=== PATIENT | female | born 1975 | race Caucasian/White ===

== ENCOUNTER 2020-01-08 15:25 | Outpatient (CLI) | payer BC, SELFPAY ==
--- NOTE | ~2020-01-08 | MM_ITS ---
EXAMINATION: MM screening saad BI w iban HISTORY: Screening mammogram TECHNIQUE: Craniocaudal and mediolateral oblique 3-D tomosynthesis images were obtained and synthetic 2-D images were generated. CAD analysis was submitted and interpreted. COMPARISON: 05/07/2018, 03/28/2017 bilateral digital screening mammogram examinations BREAST PARENCHYMAL COMPOSITION: The breasts are extremely dense, which lowers the sensitivity of mamm ography. FINDINGS: There is no evidence of suspicious mass, calcification, or architectural distortion to sugg est malignancy in either breast. There has been no suspicious interval change. IMPRESSION: 1. No mammographic evidence of malignancy. 2. Recommend routine screening mammography in one year. BI-RADS Category 1: Negative Reviewed, dictated and finalized at location A. H CLAIM EXAMINER
== END 2020-01-08 15:26 | disposition home or self-care (01) ==
PROVIDERS: PCP Family Medicine Adolescent Medicine; Visit Provider Obstetrics & Gynecology
DX: Z12.31 Encounter for screening mammogram for malignant neoplasm of breast (principal)
CPT/HCPCS: 77063; 77067

== ENCOUNTER 2020-01-23 11:32 | Outpatient (NON) | payer BC, SELFPAY ==
[2020-01-24 00:27] LABS: SARS-CoV-2 RNA PCR Positive
== END 2020-01-23 11:33 ==
LOC: ANHCOVIDDT 11:35
PROVIDERS: Visit Provider Family Medicine Adolescent Medicine
DX: U07.1 COVID-19 (principal)
CPT/HCPCS: 87635; C9803; U0003

== ENCOUNTER → 2020-06-27 06:39 | Outpatient (CLI) | payer BC, SELFPAY ==
[2020-06-27 23:32] LABS: SARS-CoV-2 RNA PCR Negative
== END ==
PROVIDERS: PCP Family Medicine Adolescent Medicine; Visit Provider Family Medicine Adolescent Medicine
DX: R05 Cough (principal); R51.9 Headache, unspecified; Z20.822 Contact with and (suspected) exposure to COVID-19
CPT/HCPCS: C9803; U0003; U0005

== ENCOUNTER 2020-11-10 13:00 | Emergency (ER) | payer OTHER, SELFPAY ==
[2020-11-10 13:10] VITALS: BP 114/84; PULSE 115; RESP 16; TEMP 36.6; O2SAT 100
[2020-11-10] MEDS: diphenhydrAMINE HCl INJ 50 MG/ML VIAL IM (14:23)
[2020-11-10] MEDS: KETOROLAC (*BKC) 60 MG/2 ML VIAL IM (14:23)
[2020-11-10] MEDS: ONDANSETRON HCL ODT 4 MG TABLET 8 MG SUBLINGUAL (14:24)
--- NOTE | 2020-11-10 19:32 | ED.HA ---
HPI - Headache General Chief Complaint: Headache Stated Complaint: Migraine Time Seen by Provider: 11/10/20 14:00 Source: patient and RN notes reviewed Mode of arrival: ambulatory Limitations: no limitations History of Present Illness HPI Narrative: Patient presents today complaining of a migraine headache x3 days that is located on the right side of her head with associated symptoms to include photophobia, phonophobia, nausea. Reports this is similar to her previous migraines. Denies vision changes, vomiting. She currently rates her pain 15/10 and has been taking Tylenol, ibuprofen for pain without relief. She takes Topamax on a daily basis. States she did call her PCP who called her in some tramadol. States that when she has a migraine, her PCP calls her in narcotics instead of migraine medications. States, he thinks they help, but they don't, and I don't even pick them up. Denies that this is the worst headache of her life. MD elicited complaint: migraine Related Data Home Medications Medication Instructions Recorded Confirmed alprazolam 0.5 mg tablet 0.5 mg PO DAILY 06/05/19 11/10/20 bupropion HCl 150 mg tablet,12 hr 150 mg PO DAILY 06/05/19 11/10/20 sustained-release gabapentin 300 mg capsule 300 mg PO DAILY 06/05/19 11/10/20 norethindrone acetate 1.5 1 tablet PO DAILY 06/05/19 11/10/20 mg-ethinyl estradiol 30 mcg tablet sertraline 50 mg tablet 50 mg PO DAILY 06/05/19 11/10/20 thyroid (pork) 120 mg tablet 120 mg PO DAILY 06/05/19 11/10/20 topiramate 50 mg tablet 50 mg PO BID 06/05/19 11/10/20 valacyclovir 500 mg tablet 500 mg PO DAILY 06/05/19 11/10/20 Allergies Allergy/AdvReac Type Severity Reaction Status Date / Time No Known Allergies Allergy Verified 11/10/20 13:41 Review of Systems Review of Systems: CONSTITUTIONAL: Denies body aches, fever, chills, or sweats. EYES: Denies visual changes, redness, or discharge.+ Photophobia ENT: Denies rhinorrhea, congestion, sore throat, or otalgia.+ Phonophobia CARDIOVASCULAR: Denies chest pain, palpitations, or edema. RESPIRATORY: Denies cough or dyspnea. GASTROINTESTINAL: Denies abdominal pain, vomiting, or diarrhea.+ Nausea GENITOURINARY: Denies dysuria or hematuria. SKIN: Denies rash, itching, or wounds. MUSCULOSKELETAL: Denies back pain, joint pain, or myalgia. NEUROLOGIC: Denies numbness, or weakness.+ Migraine. Patient has tingling in her right arm at baseline. PSYCH: Denies depression or anxiety. [facility] Past Medical History Medical History (Updated 11/10/20 @ 19:35 by Teagan Murphy, CLERK SECRETARY, ) Anxiety Depression Headache Migraine Thyroid disease Surgical History Surgical History History of thyroidectomy 2014 History of tubal ligation 2012 Social History Social History Smoking status: Never smoker Alcohol intake: never Substance use: never Comments At time of signature, I have reviewed and agree with nursing past medical, surgical, social and family history unless otherwise noted. Please see nursing chart for further information. There is no relevant family history pertinent to the presenting complaint Exam Narrative: GENERAL: Well-appearing, well-nourished, and in no mild to moderate pain distress. Sitting in a darkened room. HEAD: Normocephalic, atraumatic. EYES: EOMI. PERRL. No redness or drainage. Conjunctivae normal. ENT: Mucous membranes pink and moist. NECK: Normal AROM. Supple. No lymphadenopathy. CHEST: No respiratory distress. Clear to auscultation. HEART: Regular rate and rhythm. No murmur appreciated. Normal peripheral pulses. EXTREMITIES: Normal range of motion. No edema. SKIN: Warm, dry, no rash. Capillary refill normal. Normal skin turgor. NEURO: No focal deficits. Alert and oriented x3. Gait steady. PSYCH: Normal affect. No signs of depression or anxiety. Course Course Emergen
== END 2020-11-10 15:15 | disposition home or self-care (01) ==
PROVIDERS: Emergency Provider Nurse Practitioner; PCP Family Medicine Adolescent Medicine
DX: G43.911 Migraine, unspecified, intractable, with status migrainosus (principal); F41.9 Anxiety disorder, unspecified; F32.9 Major depressive disorder, single episode, unspecified; E07.9 Disorder of thyroid, unspecified
CPT/HCPCS: 96372; 99214; A9270; G0463; J1200; J1885

== ENCOUNTER → 2020-11-30 10:32 | Outpatient (CLI) | payer OTHER, SELFPAY ==
--- NOTE | ~2020-11-30 | US_ITS ---
EXAMINATION: US transvaginal DATE: 11/30/2020 11:04 INDICATION: Pelvic pain Comparison:12/19/2013 TECHNIQUE: Multiple endovaginal sonographic images of the pelvis performed. FINDINGS: The uterus measures 7.6 x 3.5 x 4.3 cm. The endometrial complex measures 3 mm. The right ovary measures 1.6 x 1.9 x 1.5 cm and the left ovary measures 2.3 x 2.1 x 1.5 cm. There ar e small follicles in each ovary. Normal doppler signal in both ovaries. There is no free fluid in the pelvis. There are no abnormal masses seen on either side. IMPRESSION: 1. Unremarkable pelvic ultrasound. Reviewed, dictated and finalized at location B.
== END ==
PROVIDERS: Visit Provider Obstetrics & Gynecology
DX: R10.2 Pelvic and perineal pain (principal)
CPT/HCPCS: 76830

== ENCOUNTER → 2020-12-25 03:33 | Outpatient (CLI) | payer OTHER, SELFPAY ==
[2020-12-25 18:10] LABS: SARS-CoV-2 RNA PCR Negative
== END ==
PROVIDERS: Visit Provider Obstetrics & Gynecology
DX: Z01.812 Encounter for preprocedural laboratory examination (principal); Z20.822 Contact with and (suspected) exposure to COVID-19
CPT/HCPCS: C9803; U0003; U0005

== ENCOUNTER 2020-12-25 08:48 | Outpatient (CLI) | payer OTHER, SELFPAY | END 2020-12-25 08:49 | disposition home or self-care (01) | LOC: ANHSURGERY 08:53 | PROVIDERS: Visit Provider Obstetrics & Gynecology | DX: Z01.812 Encounter for preprocedural laboratory examination (principal); N80.9 Endometriosis, unspecified | CPT/HCPCS: 36415; 86850; 86900; 86901 ==

== ENCOUNTER 2020-12-28 02:06 | Day surgery (SDC) | payer OTHER, SELFPAY ==
[2020-12-23 11:52] VITALS: BMI 23.9
--- NOTE | 2020-12-23 12:07 | PC.NURSE ---
Report to the Outpatient Waiting Room, entrance under the green pavilion located off [facility], at time 10:00 on date 12/28/20. OR Time: 12:00. - You and your visitor will be asked a series of questions to screen for COVID 19 for your protection. - A mask is required within the hospital. - Only one visitor is allowed at this time. Patient visitors will be guided where to wait when not with patient. Preoperative COVID Testing Requirements: No COVID Test needed if: (proof is required; if not received patient will have Rapid Test prior to entry) - Patient has received COVID Vaccine at least 14 days prior to procedure date or - Patient has positive COVID test result within last 90 days of surgery date. COVID Test needed if above criteria is not met If not COVID vaccinated a COVID test must be conducted within 72 hours of surgery and patient is asked to isolate self from time of testing until procedure. You will go to the [facility] for your COVID testing. The [facility] is located at the corner of [address] [facility]. COVID TEST 12/25 AT 8:35 You will only be called if COVID results are positive and your surgeon may reschedule your elective surgery date. Patients may have clear liquids (water, carbonated beverages, clear teas, apple juice) until 3 hours prior to surgery with a maximum of 20 ounces. - No food from midnight until time of surgery - Infants may have breast milk until 4 hours before surgery, infant formula 6 hours prior to surgery. - Children will be allowed to drink immediately following surgery. If applicable, please bring a bottle or sippy cup to assist with drinking. Juice, water, soda, and popsicles are readily available. For infants on formula, please bring formula the day of surgery. Pacifiers are allowed. Take the following medications with a SIP of water the morning of surgery: ALPAZOLAM (IF NEEDED), BUPROPION, SERTRALINE, THYROID, TOPIRAMATE, VALACYCLOVIR Medications to discontinue per physician: VITAMINS/SUPPLEMENTS Date to take last dose: Monday12/24/20 Please no make-up, nail slovak, hairspray, perfume, deodorant, or body powder the day of surgery. No jewelry (including any body piercings) or valuables the day of surgery, leave them at home. Please take a shower or bath the night before, or the morning of, surgery with an antibacterial soap. Wear comfortable, loose fitting clothing. Children are encouraged to wear pajamas. - Jewelry must be removed prior to entering the operating room. Rings and piercings that are not removed may be cut off. - The hospital will not accept responsibility for valuables. - Please leave all valuables, including medications, at home the day of surgery. If you are going home after surgery, a licensed pick up driver must drive you home. - NO public transportation without another adult. - We recommend that an adult stay with you for 24 hours following discharge. - We also recommend that you do not drive, make important decision, drink alcoholic beverages, or take any drugs that were not prescribed by your health care provider for at least 24 hours after your discharge time. For Pediatric surgeries, we recommend two adults accompany the child home (only one inside the building at this time). Follow any additional instructions given to you from your surgeon. Telephone instructions given to SHADY RENE and asked if any additional questions and then verbalized understanding. Patient advised to call surgeon office or pre surgery nurse liaison [phone] if any additional questions.
[2020-12-28] VITALS (11 sets, daily range): BP systolic 92–126; BP diastolic 68–95; PULSE 74–100; RESP 12–20; TEMP 36.3–36.8; O2SAT 95–100; BMI 24.5
[2020-12-28] MEDS: LACTATED RINGERS 1,000 ML 30 ML IV CONT ×2 (10:48→14:10)
[2020-12-28] MEDS: KETOROLAC 15 MG/ML VIAL (*BKC) IV PUSH (10:48)
[2020-12-28] MEDS: ACETAMINOPHEN 500 MG TABLET 1000 MG PO (10:48)
--- NOTE | 2020-12-28 10:52 | P.PNAN_ITS ---
Anes - Initial Pre Proc Eval Procedure: Operation Date: 12/28/20 12:00 Proposed Procedures p Laparoscopic Assisted Vaginal Hysterectomy - Jose Segovia MD Date/Time: 12/28/20 10:52 Surgeon: Jose Segovia MD Pre Op Diagnosis: endometriosis Patient Data Age: 45 Gender: F Height: 1.7 m Weight: 71 kg Last Vital Signs Temp 36.3 C L 12/28/20 10:26 Pulse 95 12/28/20 10:26 Resp 18 12/28/20 10:26 BP 117/95 H 12/28/20 10:26 Pulse Ox 100 12/28/20 10:26 Allergies Allergy/AdvReac Type Severity Reaction Status Date / Time No Known Allergies Allergy Verified 12/28/20 10:18 Home Medications Medication Instructions Recorded Confirmed Type alprazolam 0.5 mg tablet 0.5 mg PO DAILY PRN 06/05/19 12/28/20 History bupropion HCl 150 mg tablet,12 hr 150 mg PO BID 06/05/19 12/28/20 History sustained-release sertraline 50 mg tablet 50 mg PO DAILY 06/05/19 12/28/20 History thyroid (pork) 120 mg tablet 120 mg PO DAILY 06/05/19 12/28/20 History topiramate 50 mg tablet 50 mg PO BID 06/05/19 12/28/20 History valacyclovir 500 mg tablet 500 mg PO DAILY 06/05/19 12/28/20 History ondansetron 8 mg PO Q4-6H PRN #20 tablet 11/10/20 12/23/20 Rx cholecalciferol (vitamin D3) 50 mcg PO DAILY 12/23/20 12/28/20 History [Vitamin D3] Patient hx anesthesia problems: none Family hx anesthesia problems: none Results Review: All pre-operative results and documents have been reviewed as part of the pre-operative evaluation. [facility] Past Medical History Medical History Anxiety Depression Headache Migraine Thyroid disease Surgical History Surgical History History of thyroidectomy 2014 History of tubal ligation 2012 Social History Social History Smoking status: Never smoker Alcohol intake: current Alcohol use details: SOCIAL Substance use: never Substance use type: does not use Living arrangements: with family Spiritual care concerns: No Anes - Eval Final PreProcedure Day of Procedure 12/28/20 10:52 Patient weight: normal Heart: regular rate and rhythm Airway: Mallampati scale class 1 Neurological: alert and oriented ASA classification: II Emergent: no Anesthesia type and monitoring: general GIVS and standard monitoring Results Review: All pre-operative results and documents have been reviewed as part of the pre-operative evaluation. Informed Consent: The patient's anesthetic plan and its attendant risks and benefits were discussed with the patient/family/POA. Questions were solicited and answers provided to the satisfaction of the patient/family/POA.
[2020-12-28] MEDS: SCOPOLAMINE 1.5 MG PATCH TRANSDERM (10:53)
--- NOTE | 2020-12-28 11:37 | PM.IMHP ---
H&P: HPI History of Present Illness Date/Time: 12/28/20 11:37 45 y/0 A1 presented the office with a history of endometriosis. Patient reports periods are very painful and intercouse also. She tried hormonal therapy and now no relief. Chief Complaint: painful cycles Review of Systems Constitutional: Constitutional: Reports fatigue Gastrointestinal: Gastrointestinal: Reports abdominal pain, Reports change in stool character, Reports diarrhea, Reports nausea and Reports vomiting Musculoskeletal: Musculoskeletal: Reports back pain PMFSH Past Medical History Medical History (Updated 12/29/20 @ 07:44 by Reyna Batitsa MD) Anxiety Depression Dysmenorrhea Endometriosis Headache Migraine Thyroid disease Surgical History Surgical History History of thyroidectomy 2014 History of tubal ligation 2012 Social History Social History Smoking status: Never smoker Alcohol intake: current Alcohol use details: SOCIAL Substance use: never Substance use type: does not use Living arrangements: with family Spiritual care concerns: No Meds Home Medications and Allergies Home Medications Medication Instructions Recorded Confirmed Type alprazolam 0.5 mg tablet 0.5 mg PO DAILY PRN 06/05/19 12/28/20 History bupropion HCl 150 mg tablet,12 hr 150 mg PO BID 06/05/19 12/28/20 History sustained-release sertraline 50 mg tablet 50 mg PO DAILY 06/05/19 12/28/20 History thyroid (pork) 120 mg tablet 120 mg PO DAILY 06/05/19 12/28/20 History topiramate 50 mg tablet 50 mg PO BID 06/05/19 12/28/20 History valacyclovir 500 mg tablet 500 mg PO DAILY 06/05/19 12/28/20 History ondansetron 8 mg PO Q4-6H PRN #20 tablet 11/10/20 12/23/20 Rx cholecalciferol (vitamin D3) 50 mcg PO DAILY 12/23/20 12/28/20 History [Vitamin D3] hydrocodone-acetaminophen 1 tablet PO Q3H PRN #20 tablet 12/29/20 Rx ondansetron 4 mg PO Q6H PRN #20 tablet 12/29/20 Rx Allergies Allergy/AdvReac Type Severity Reaction Status Date / Time No Known Allergies Allergy Verified 12/28/20 10:18 Vital Signs Vital Signs - 24 hr 12/28/20 10:26 Temperature 36.3 C L Pulse Rate 95 Respiratory Rate 18 Blood Pressure 117/95 H Pulse Oximetry 100 Exam Const: General: well developed Resp: Auscultation: clear to auscultation bilaterally Cardio: Rate: regular rate Rhythm: regular rhythm GI: Inspection: normal to inspection Auscultation: normal bowel sounds : Speculum Exam - Vagina: normal appearance of the vagina Speculum Exam - Cervix: normal appearance of the cervix Bimanual exam- vagina & uterus: normal bimanual exam Bimanual Exam- Adnexa, other: normal adnexae Assessment and Plan Assessment and plan (1) Dysmenorrhea: Code(s): N94.6 - Dysmenorrhea, unspecified Status: Acute Assessment and Plan: scheduled for a LAVH with possible bilateral salpingoopherectomy. Risk and benefits of procedure reviewed in detail with patient including bleeding, infection, trauma, complications of anesthesia, and continued pelvic pain. Patient verbally agrees to proceed. (2) Endometriosis: Code(s): N80.9 - Endometriosis, unspecified Status: Acute
--- NOTE | 2020-12-28 11:53 | WPDHPUPDATE1 ---
History and Physical Update Update Date/Time: 12/28/20 11:53 History and Physical has been reviewed, including an updated exam of the patient. There are NO changes in the patient's condition. Risks, benefits, and alternatives have been discussed and questions answered. Patient agrees to proceed with procedure.
--- NOTE | 2020-12-28 11:56 | SUR.PREOP ---
DR SIMPSON HERE, ASKED TO ADD POSSIBLE BSO TO CONSENT.
[2020-12-28] MEDS: ceFAZolin 2 GM/D5W 50 ML 2 GM/50 ML BAG IVPB (12:00)
[2020-12-28] MEDS: fentaNYL CITRATE INJ (*CRX) 100 MCG/2 ML VIAL 25 MCG IV PUSH ×8 (14:30→15:22)
--- NOTE | 2020-12-28 15:35 | PC.NURSE ---
This patient, Justin Ann, was received from PACU on 12/28/20 at 1535. Patient/family oriented to unit policies and routines
[2020-12-28] MEDS: KETOROLAC 30 MG/ML VIAL (*BKC) IV PUSH ×2 (16:15→23:03)
[2020-12-28] MEDS: MORPHINE SULFATE (*CRX) 4 MG/ML INJ IV PUSH ×2 (16:16→19:52)
[2020-12-28] MEDS: SIMETHICONE 80 MG TAB.CHEW PO (16:16)
[2020-12-28] MEDS: DEXTROSE 5%/0.45% SOD CHL 1,000 ML 125 ML IV CONT (16:17)
[2020-12-28] MEDS: ONDANSETRON INJ 4 MG/2 ML VIAL IV PUSH (20:48)
[2020-12-28] MEDS: TOPIRAMATE 25 MG TABLET 50 MG PO (20:51)
[2020-12-28] MEDS: SENNA/DOCUSATE SODIUM TABLET 2 TAB PO (20:51)
[2020-12-28] MEDS: buPROPion HCL SR (12 HR) 150 MG TAB PO (20:52)
[2020-12-29 03:40] VITALS: BP 119/89; PULSE 97; RESP 16; TEMP 37.1; O2SAT 100
[2020-12-29] MEDS: HYDROcodone/acetaminophen (*CRX) 5-325 MG TABLET 1 TAB PO ×2 (03:46→07:52)
[2020-12-29 04:52] LABS: Basophils Percent Auto 0.3 % (0.2-1.2); Hematocrit 32.7 % (37.0-47.0); Hemoglobin 11.3 g/dL (12.0-15.0); Immature Granulocyte Absolute 0.04 K/mm3 (0.00-0.031); Immature Granulocyte Percent A 0.3 % (0-0.5); Lymphocytes Absolute Auto 0.71 K/mm3 (0.9-3.2); Lymphocytes Percent Auto 6.1 % (18.3-44.2); Mean Corpuscular HGB Conc 34.6 g/dl (32-36); Mean Corpuscular Volume 89.8 fl (80-100); Mean Platelet Volume 10.1 fl (7.4-10.4); Monocytes Absolute Auto 0.6 K/mm3 (0.1-0.6); Monocytes Percent Auto 4.8 % (2.6-8.5); Neutrophils Absolute Auto 10.4 K/mm3 (1.3-6.7); Neutrophils Percent Auto 88.5 % (45.5-73.1); Platelet Count Result 279 k/mm3 (150-375); Red Blood Count 3.64 M/mm3 (4.2-5.4); Red Cell Distribution Width 11.3 % (11.5-14.5); White Blood Count 11.7 K/mm3 (4.5-10.0)
[2020-12-29 05:36] LABS: Anion Gap 4 mmol/L (8-16); Blood Urea Nitrogen 11 mg/dL (7-17); Calcium 8.4 mg/dL (8.4-10.2); Carbon Dioxide 23 mmol/L (22-30); Chloride 107 mmol/L (98-107); Estimated CRCL calculation 76 ml/min; Estimated Glomerular Filt Rate > 60; Glucose 131 mg/dL (65-110); Potassium 3.7 mmol/L (3.4-5.0); Sodium 134 mmol/L (137-145)
--- NOTE | 2020-12-29 07:42 | PM.GYNPNOP ---
TETRYL SCREEN OPERATOR - A/P Postoperative Procedures: Procedures Operation Date: 12/28/20 12:00 Actual Procedure Side Surgeon p Laparoscopic Assisted Vaginal Hysterectomy, Bilateral Salpingectomy Bilateral Jose Segovia MD Postoperative day: 1 Postoperative status: doing well Postoperative plan: routine post-op care and discharge Time Spent With Patient Time: Total time spent is greater than 50% in coordination of care (as documented) at patient's floor/unit and/or counseling patient: Time with patient: less than 15 minutes TETRYL SCREEN OPERATOR- PN:Subj Post-Op Subjective Date/time seen: 12/29/20 07:42 Subjective: patient has no complaints, pain is well controlled and patient is tolerating oral intake Exam Narrative: inc c/d/i abd-soft, nt,nd TETRYL SCREEN OPERATOR - PN: Obj Data Vital Signs Vital Signs: Vital Signs - 24 hr 12/28/20 10:26 12/28/20 14:10 12/28/20 14:15 Temperature 97.3 F L 97.6 F Pulse Rate 95 100 86 Respiratory Rate 18 16 20 Blood Pressure 117/95 H 120/80 116/75 Pulse Oximetry 100 100 100 12/28/20 14:30 12/28/20 14:45 12/28/20 15:00 Temperature Pulse Rate 93 79 89 Respiratory Rate 16 12 19 Blood Pressure 113/76 102/73 99/77 L Pulse Oximetry 100 96 98 12/28/20 15:15 12/28/20 15:26 12/28/20 16:00 Temperature 97.8 F Pulse Rate 80 75 74 Respiratory Rate 12 12 18 Blood Pressure 92/75 L 93/80 L 99/70 L Pulse Oximetry 97 95 12/28/20 19:50 12/28/20 22:50 12/29/20 03:40 Temperature 97.3 F L 98.2 F 98.8 F Pulse Rate 100 98 97 Respiratory Rate 16 16 16 Blood Pressure 113/68 126/83 119/89 Pulse Oximetry 98 98 100 Intake/Output Intake/Output: Intake & Output 12/26/20 12/27/20 12/28/20 12/29/20 23:59 23:59 23:59 23:59 Intake Total 1050 100 Output Total 875 75 Balance 175 25 Meds/Results Medications: Active Medications Generic Name Dose Route Start Last Admin Trade Name Freq PRN Reason Stop Dose Admin Hydrocodone Bitart/Acetaminophen 1 tab 12/28/20 14:21 12/29/20 03:46 Hydrocodone/Acetaminophen (*Crx) 5-325 Mg Tablet PO 1 tab Q3H PRN Administration Pain Rated 5 or Less Hydrocodone Bitart/Acetaminophen 1 tab 12/28/20 14:21 Hydrocodone/Acetaminophen (*Crx) 10-325 Mg Tablet PO Q3H PRN Pain Rated 6 or Greater Bupropion HCl 150 mg 12/28/20 21:00 12/28/20 20:52 Bupropion Hcl Sr (12 Hr) 150 Mg Tab PO 150 mg Q12HR TANNER Administration Estrogens Conjugated 1 applic 12/28/20 13:50 Estrogens, Conjugated Vaginal Cream 30 Gm VAGINAL ONCE TANNER Dextrose/Sodium Chloride 1,000 mls @ 125 mls/hr 12/28/20 14:25 12/28/20 16:17 Dextrose 5% Sodium Chloride 0.45% IV CONT 125 mls/hr .Q8H TANNER Administration Ibuprofen 600 mg 12/28/20 14:21 Ibuprofen 600 Mg Tablet PO Q6H PRN Cramping Ketorolac Tromethamine 30 mg 12/28/20 14:21 12/28/20 23:03 Ketorolac 30 Mg/Ml Vial (*Bkc) IV PUSH 01/02/21 14:20 30 mg Q6H PRN Administration Pain Rated 4-6 Morphine Sulfate 4 mg 12/28/20 14:21 12/28/20 19:52 Morphine Sulfate (*Crx) 4 Mg/Ml Inj IV PUSH 4 mg Q4H PRN Administration Severe breakthrough pain Naloxone HCl 0.1 mg 12/28/20 14:21 Naloxone Hcl 0.4 Mg/Ml Vial IV PUSH Q2M PRN Respiratory rate less than 10 Ondansetron HCl 4 mg 12/28/20 14:21 12/28/20 20:48 Ondansetron Inj 4 Mg/2 Ml Vial IV PUSH 4 mg Q6H PRN Administration Nausea And Vomiting Senna/Docusate Sodium 2 tab 12/28/20 21:00 12/28/20 20:51 Senna/Docusate Sodium Tablet PO 2 tab HS TANNER Administration Sertraline HCl 50 mg 12/29/20 09:00 Sertraline Hcl 50 Mg Tablet PO DAILY TANNER Simethicone 80 mg 12/28/20 14:21 12/28/20 16:16 Simethicone 80 Mg Tab.Chew PO 80 mg Q2H PRN Administration Gas Thyroid 120 mg 12/29/20 09:00 Thyroid 60 Mg Tablet PO QAM TANNER Topiramate 50 mg 12/28/20 21:00 12/28/20 20:51 Topiramate 25 Mg Tablet PO 50 mg Q12HR TANNER Administration Labs CBC & Chem
[2020-12-29] MEDS: buPROPion HCL SR (12 HR) 150 MG TAB PO (07:51)
[2020-12-29] MEDS: SERTRALINE HCL 50 MG TABLET PO (07:52)
[2020-12-29] MEDS: THYROID 60 MG TABLET 120 MG PO (07:52)
[2020-12-29] MEDS: TOPIRAMATE 25 MG TABLET 50 MG PO (07:52)
[2020-12-29] MEDS: IBUPROFEN 600 MG TABLET PO (07:53)
[2020-12-29] MEDS: ONDANSETRON INJ 4 MG/2 ML VIAL IV PUSH (08:17)
[2020-12-29 08:20] VITALS: BP 114/81; PULSE 110; RESP 18; TEMP 36.8; O2SAT 99
--- NOTE | 2020-12-29 08:46 | WPDANESPN ---
Anes - Prog Note Post-Op Date/Time: 12/29/20 08:46 Cardiovascular status: normal Respiratory status: normal Airway patency: baseline Mental status: baseline Post-Op hydration status: normal Vital Signs: Last Vital Signs Temp 98.8 F 12/29/20 03:40 Pulse 97 12/29/20 03:40 Resp 16 12/29/20 03:40 BP 119/89 12/29/20 03:40 Pulse Ox 100 12/29/20 03:40 Pain Score (VAS): 2 I/O: Intake & Output 12/28/20 12/29/20 12/29/20 23:59 07:59 15:59 Intake Total 600 100 Output Total 875 75 Balance -275 25 Laboratory Tests 12/29/20 03:53 12/29/20 03:53 12/29/20 12/29/20 03:53 03:53 WBC 11.7 H RBC 3.64 L Hgb 11.3 L Hct 32.7 L MCV 89.8 MCH 31.0 MCHC 34.6 RDW 11.3 L Plt Count 279 MPV 10.1 Immature Gran % (Auto) 0.3 Neut % (Auto) 88.5 H Lymph % (Auto) 6.[address] [place] % (Auto) 4.8 Eos % (Auto) 0.0 Baso % (Auto) 0.3 Lymph # (Auto) 0.[address] [place] # (Auto) 0.6 Eos # (Auto) 0.0 Baso # (Auto) 0.0 Abs Immat Gran (auto) 0.04 H Absolute Neuts (auto) 10.4 H Absolute Nucleated RBC 0.0 Nucleated RBC % 0.0 Sodium 134 L Potassium 3.7 Chloride 107 Carbon Dioxide 23 Anion Gap 4 L BUN 11 Creatinine 0.80 Estim Creat Clear Calc 76 Estimated GFR > 60 Glucose 131 H Calcium 8.4 Post-procedural complaints: none Patient Feedback: Patient satisfied with anesthetic care.
[2020-12-29] MEDS: HYDROcodone/acetaminophen (*CRX) 10-325 MG TABLET 1 TAB PO (12:17)
--- NOTE | 2020-12-29 13:23 | W.PM.PROC2 ---
Procedure Note - Detailed Date of Procedure 12/29/20 Pre-op Diagnosis endometriosis dysmenorrhea Post-op Diagnosis other (dysmenorrhea) Procedure Performed [facility] Surgeon Jose Segovia MD Anesthesia general Findings falope rings and endometrial implants along bladder reflection Description of Procedure After anesthesia was found be adequate patient was placed in dorsal lithotomy position prepped and draped in usual manner for laparoscopic procedure. A speculum was placed the vagina. A single-tooth tenaculum was utilized to grasp the anterior lip of the cervix. The uterus was sounded to 10cm. A uterine manipulator was placed into the cervix. Solorzano was already in place. The speculum was removed attention was then turned to the abdomen. 5Cc of lidocaine with epi was injected in the infraumbilical fold in a horizontal incision was made through which a Veress needle was inserted into the abdominal cavity. Aspiration was negative therefore the abdomen was insufflated with carbon dioxide. After adequate insufflation Veress needle was removed and a 5mm trocar was introduced through the umbilical fold under direct visualization with the scope. Mild arm minimal adhesions were noted to the abdominal wall from the peritoneum in the uterus. A 5mm skin incision was made and a 5mm trocar was introduced into the abdomen for instrumentation on the right and left side of the abdomen. Evaluation of the pelvis revealed a body enlarged and irregular shaped uterus. The fallopian tubes and ovaries appeared normally vaginally and the cul-de-sac was clear the ureters were noted to be deep in the pelvis at this time the right cornu was grasped and the right ovarian uterine ligament round ligaments were doubly clamped doubly coagulated with the Harmonic scalpel. Same procedure was performed on the left with doubly clamping the uterine ovarian ligament round ligaments. The bladder flap was created with blunt and coagulation dissection. The remainder of the uterine vessels and anterior and posterior leaves of the broad ligament and away and transected and coagulated in a serial fashion down to the uterine arteries. The surgery was then turned to the vagina. In which a weighted speculum was placed into the vagina and the anterior and posterior lip of the cervix was grasped with single-tooth tenaculum. The cervix was injected circumferentially with 1% lidocaine with epinephrine. And a circumferential incision was made in the vaginal tissue. The posterior cul-de-sac was entered with sharp and blunt dissection. And a longer weighted speculum was placed into the vagina. The bladder or anterior portion of the vagina was then dissected off the cervix. The right uterosacral ligament was clamped transected and suture ligated with 0 Vicryl suture. The left uterosacral ligament was also clamped and transected with 0 Vicryl suture. The parametrial tissue and the uterine arteries were clamped transected and suture ligated with 0 Vicryl suture. The uterus was removed from the vagina. The pedicles were examined for hemostasis the vaginal close was then closed in a running locked fashion with 0 Vicryl suture with also closing the uterosacral ligaments in the center. Vagina was packed attention was then turned to the abdomen again and insufflated hemostasis was noted at the pedicles. The trocars were removed and all gas was escaped from the abdomen and the incisions were closed with 4 Vicryl suture. Sponge lap and needle counts were correct x2 patient tolerated this procedure well. patient was taken to recovery room in stable condition. Estimated Blood Loss -150.0 Urine Output 100 Drains Yes Packing Yes Pathology yes Complications None Condition stable Disposition PACU
== END 2020-12-29 13:25 | disposition home or self-care (01) ==
LOC: ANHSURGERY 12:14 → ANHOB2 19:11
PROVIDERS: PCP Family Medicine Adolescent Medicine; Visit Provider Obstetrics & Gynecology
PROC: 0UT9FZZ Resection of Uterus, Via Natural or Artificial Opening With Percutaneous Endoscopic Assistance (ICD-10-PCS; CPT 58552; principal; 2020-12-28 12:00)
DX: N80.0 Endometriosis of uterus (principal); N94.6 Dysmenorrhea, unspecified; D25.1 Intramural leiomyoma of uterus; E07.9 Disorder of thyroid, unspecified; F41.8 Other specified anxiety disorders
CPT/HCPCS: 58552; 36415; 80048; 85025; 86850; 86900; 86901; 88307; 99199; A9270; C9803; J0690; J1100; J1170; J1885; J2250; J2270; J2405; J2704; J2710; J3010; J7120; U0003; U0005

== ENCOUNTER 2021-01-11 15:11 | Outpatient (CLI) | payer OTHER, SELFPAY ==
--- NOTE | ~2021-01-11 | US_ITS ---
EXAMINATION: US venous doppler [facility] DATE: 01/11/2021 16:09 INDICATION: Calf pain. TECHNIQUE: Grayscale ultrasound images without and with compression and Doppler ultrasound images of the bilateral lower extremity veins were obtained. COMPARISON: None. FINDINGS: The visualized portions of right common femoral vein, profunda (deep) femoral vein, femoral vein, pop liteal vein, peroneal veins, posterior tibial veins, and greater saphenous vein outflow are patent. The visualized portions of left common femoral vein, profunda femoral vein, femoral vein, popliteal v ein, peroneal veins, posterior tibial veins, and greater saphenous vein outflow are patent. IMPRESSION: 1. No deep venous thrombosis. Reviewed, dictated and finalized at location A. [facility]
== END 2021-01-11 15:12 | disposition home or self-care (01) ==
LOC: ANHIMG 15:14
PROVIDERS: PCP Family Medicine Adolescent Medicine; Visit Provider Obstetrics & Gynecology Gynecology
DX: M79.669 Pain in unspecified lower leg (principal)
CPT/HCPCS: 93970

== ENCOUNTER 2021-08-11 11:25 | Outpatient (CLI) | payer OTHER, SELFPAY ==
--- NOTE | ~2021-08-11 | US_ITS ---
US pelvic complete w TV DATE: 08/11/2021 12:32 INDICATION: Pelvic pain, right side. History of hysterectomy in February 2021. Right ovarian cyst tomasz rausche March 2021. TECHNIQUE: Real-time imaging via transabdominal and transvaginal approaches COMPARISON: 11/30/2020 transvaginal pelvic ultrasound examination FINDINGS: The uterus is surgically absent. Right ovary measures 5.8 x 3.5 x 4.1 cm, with vascular flow. There is a right ovarian 4.5 x 2.2 x 2.6 cm probable hemorrhagic cyst. Additional up to 3.2 x 1.6 x 2.8 cm right ovarian cysts are noted. Left ovary measures 1.8 x 1.6 x 2.1 cm, with vascular flow. No other pelvic mass or any abnormal pelvic free fluid collection is noted. IMPRESSION: Status post hysterectomy Complicated probable hemorrhagic right ovarian 4.5 x 2.2 x 2.6 cm cyst Additional right ovarian cyst measuring up to 3.2 cm Vascular flow to the ovaries; no apparent torsion No abnormal free pelvic fluid collection Reviewed, dictated and finalized at Location A. Reviewed, dictated and finalized at location B.
[2021-08-11 12:38] LABS: Hematocrit 41.1 % (37.0-47.0); Hemoglobin 13.8 g/dL (12.0-15.0); Mean Corpuscular HGB Conc 33.6 g/dl (32-36); Mean Corpuscular Hemoglobin 30.4 pg (26-34); Mean Corpuscular Volume 90.5 fl (80-100); Platelet Count Result 250 k/mm3 (150-375); Red Blood Count 4.54 M/mm3 (4.2-5.4); Red Cell Distribution Width 12.5 % (11.5-14.5); White Blood Count 6.5 K/mm3 (4.5-10.0)
== END 2021-08-11 11:26 | disposition home or self-care (01) ==
PROVIDERS: PCP Family Medicine Adolescent Medicine; Visit Provider Advanced Practice Midwife
DX: R10.12 Left upper quadrant pain (principal); R19.09 Other intra-abdominal and pelvic swelling, mass and lump; Z90.710 Acquired absence of both cervix and uterus; N83.201 Unspecified ovarian cyst, right side
CPT/HCPCS: 36415; 76830; 76856; 85027

== ENCOUNTER 2021-08-23 13:06 | Outpatient (CLI) | payer OTHER, SELFPAY ==
--- NOTE | ~2021-08-23 | US_ITS ---
EXAMINATION: US pelvic complete DATE: 08/23/2021 14:11 INDICATION: Follow-up ovarian cyst Comparison:Ultrasound dated 08/11/2021 TECHNIQUE: Multiple transabdominal and endovaginal sonographic images of the pelvis performed. FINDINGS: The uterus is surgically absent. The right ovary measures 2.5 x 1 x 1.9 cm and the left ovary measures 2.6 x 2 x 2.1 cm. There are sm all follicles in each ovary. Normal doppler signal in both ovaries. Interval resolution of complex ri ght ovarian cyst since prior examination. There is no free fluid in the pelvis. There are no abnormal masses seen on either side. IMPRESSION: 1. Unremarkable pelvic ultrasound with interval resolution of hemorrhagic cyst of the right ovary. Reviewed, dictated and finalized at location A.
== END 2021-08-23 13:07 | disposition home or self-care (01) ==
PROVIDERS: PCP Family Medicine Adolescent Medicine; Visit Provider Obstetrics & Gynecology Gynecology
DX: N83.201 Unspecified ovarian cyst, right side (principal)
CPT/HCPCS: 76856

== ENCOUNTER → 2021-10-28 13:18 | Outpatient (CLI) | payer OTHER, SELFPAY ==
--- NOTE | ~2021-10-28 | US_ITS ---
EXAMINATION: US soft tissue head and neck DATE: 10/28/2021 13:35 INDICATION: Right lateral neck mass. TECHNIQUE: Multiple grayscale and Doppler ultrasound images of the head and neck were obtained. COMPARISON: Cervical spine MRI 01/03/2019 FINDINGS: There are normal lymph nodes in the patient's area of concern in right neck. IMPRESSION: 1. Normal lymph nodes in the patient's area of concern in right neck. Reviewed, dictated and finalized at location A.
== END ==
PROVIDERS: PCP Family Medicine Adolescent Medicine; Visit Provider Physician Assistant
DX: R22.1 Localized swelling, mass and lump, neck (principal)
CPT/HCPCS: 76536

== ENCOUNTER 2021-12-21 15:38 | Day surgery (SDC) | payer OTHER, SELFPAY ==
--- NOTE | ~2021-12-21 | US_ITS ---
EXAMINATION: US pelvic complete w TV DATE: 12/21/2021 21:15 INDICATION: severe RLQ pain, ovarian cyst on CT, torsion? TECHNIQUE: Multiple transabdominal and endovaginal sonographic images of the pelvis were obtained. COMPARISON: CT abdomen pelvis, same date. FINDINGS: Uterus: Surgically absent. Right Ovary: 4.1 x 5.6 x 3.7 cm. Vascular flow is not present. 2.9 cm simple ovarian cyst. 3.5 cm non simple circumscribed ovarian lesion, with no internal flow and heterogeneous, somewhat hypoechoic con tents and the suggestion of small areas of reticular echogenicity, likely representing a hemorrhagic cyst or endometrioma, hemorrhagic cyst is favored. Left Ovary: 2.6 x 1.8 x 2.9 cm. Vascular flow is present. 1.9 cm circumscribed avascular left ovarian lesion with slightly heterogeneous hypoechoic contents, likely representing a hemorrhagic cyst or en dometrioma. There is no free fluid in the pelvis. IMPRESSION: Sonographic findings concerning for right ovarian torsion. Results reported telephonically to Dr. Gutiérrez by Dr. Yancey at 9:40 PM on 12/21/2021. Reviewed, dictated and finalized at location K. T REGISTRY OFFICER IMPRESSION: Sonographic findings concerning for right ovarian torsion. Results reported telephonically to Dr. Gutiérrez by Dr. Yancey at 9:40 PM on 2021.
--- NOTE | ~2021-12-21 | CT_ITS ---
EXAMINATION: CT abdomen pelvis w con DATE: 12/21/2021 19:24 INDICATION: RLQ pain/tenderness TECHNIQUE: Computed tomography (CT) of the abdomen and pelvis was performed with 100 mL Omnipaque-350 intravenous contrast. Automated exposure control and iterative reconstruction technique were employe d. The dose-length product was 422.65 mGy-cm. COMPARISON: None. FINDINGS: Lower thorax: Small hiatal hernia. Stable left lower lobe peripheral nodular opacity likely granuloma or lymph node. Liver: Normal. Biliary/Gallbladder: Gallbladder is normal. No bile duct dilation. Pancreas: No mass or duct dilation. Spleen: Normal. Adrenals:No mass. Kidneys: No mass, stone, or hydronephrosis. GI tract: Mild distal esophageal wall edema as can be seen with esophagitis. No small or large bowel dilation. Normal appendix. Mesentery/Peritoneum: No ascites, mass, or free air. Retroperitoneum: No mass. Pelvis: Absent uterus. 3.7 simple appearing right ovarian cyst. 4.1 cm slightly hyperdense appearing right ovarian lesion, likely proteinaceous or hemorrhagic cyst. 2.0 cm likely hemorrhagic or proteina ceous left ovarian cyst. Soft Tissues: Soft tissues and body wall unremarkable. Bones: No acute osseous finding. IMPRESSION: Bilateral ovarian cysts described above, otherwise no acute abdominopelvic process detected. Reviewed, dictated and finalized at location K. DRIVING MACHINE OPERATOR HELPER IMPRESSION: Bilateral ovarian cysts described above, otherwise no acute abdominopelvic proc ess detected.
[2021-12-21 15:44] VITALS: BP 150/101; PULSE 90; RESP 18; TEMP 36.9; O2SAT 100
[2021-12-21 16:34] LABS: Alanine Aminotransferase 22 U/L (6-35); Albumin Level 4.2 g/dL (3.5-5.1); Alkaline Phosphatase 88 U/L (38-126); Anion Gap 11 mmol/L (8-16); Aspartate Amino Transferase 20 U/L (14-36); Basophils Percent Auto 0.5 % (0.2-1.2); Bilirubin,Total 0.2 mg/dL (0.2-1.3); Blood Urea Nitrogen 12 mg/dL (7-17); Calcium 8.5 mg/dL (8.4-10.2); Carbon Dioxide 23 mmol/L (22-30); Chloride 106 mmol/L (98-107); Eosinophils Absolute Auto 0.1 K/mm3 (0-0.3); Eosinophils Percent Auto 1.1 % (0-4.4); Estimated CRCL calculation 75 ml/min; Estimated Glomerular Filt Rate > 60; Glucose 102 mg/dL (65-110); Hematocrit 39.4 % (37.0-47.0); Hemoglobin 13.5 g/dL (12.0-15.0); Immature Granulocyte Absolute 0.02 K/mm3 (0.00-0.031); Immature Granulocyte Percent A 0.3 % (0-0.5); Lipase 118 U/L (23-300); Lymphocytes Absolute Auto 1.24 K/mm3 (0.9-3.2); Lymphocytes Percent Auto 16.9 % (18.3-44.2); Mean Corpuscular HGB Conc 34.3 g/dl (32-36); Mean Corpuscular Hemoglobin 30.6 pg (26-34); Mean Corpuscular Volume 89.3 fl (80-100); Mean Platelet Volume 9.8 fl (7.4-10.4); Monocytes Absolute Auto 0.5 K/mm3 (0.1-0.6); Monocytes Percent Auto 7.1 % (2.6-8.5); Neutrophils Absolute Auto 5.5 K/mm3 (1.3-6.7); Neutrophils Percent Auto 74.1 % (45.5-73.1); Platelet Count Result 298 k/mm3 (150-375); Potassium 3.6 mmol/L (3.4-5.0); Red Blood Count 4.41 M/mm3 (4.2-5.4); Red Cell Distribution Width 11.9 % (11.5-14.5); Sodium 140 mmol/L (137-145); White Blood Count 7.4 K/mm3 (4.5-10.0)
--- NOTE | 2021-12-21 18:35 | ED.ABDPAIN ---
HPI - Abdominal Pain General Chief Complaint: Abdominal Pain Stated Complaint: rlq pain Time Seen by Provider: 12/21/21 18:18 History of Present Illness HPI narrative: Patient is a 46-year-old female with a history of hypothyroidism, depression, migraines presenting with abdominal pain. Patient states that she first had an episode of right lower quadrant pain approximately 2 days ago. It resolved but then it returned yesterday and it has become progressively worse since then. Patient states that while she was in the waiting room, the pain worsened further. States that she is also nauseated but denies vomiting. She denies diarrhea or constipation. She denies chest pain, shortness of breath, cough, dysuria, hematuria, fevers or chills. Patient has had a hysterectomy but states she still has her ovaries. Still has her appendix. Denies history of kidney stones. Related Data Allergies Allergy/AdvReac Type Severity Reaction Status Date / Time hydrocodone AdvReac Unknown Unknown Verified 12/22/21 01:15 Review of Systems Review of Systems: All systems reviewed & are unremarkable except as noted in HPI and below PMFSH Past Medical History Medical History Anxiety Depression Endometriosis Headache Migraine Thyroid disease History of thyroid cancer Surgical History Surgical History H/O vaginal hysterectomy [facility] 2020 History of thyroidectomy 2014 History of tubal ligation 2012 Family History Family History Father Heart disease Mother Diabetes mellitus Heart disease Social History Social History Smoking status: Never smoker Alcohol intake: current Alcohol use details: SOCIAL Substance use: never Substance use type: does not use Spiritual care concerns: No Exam Narrative: GENERAL: Well-appearing, well-nourished, and in no acute distress. HEAD: Normocephalic, atraumatic. EYES: PERRLA and EOMI. ENT: Nares clear, no rhinorrhea or epistaxis. Mucous membranes moist. NECK: Supple. CHEST: Clear to auscultation. No respiratory distress. HEART: Regular rate and rhythm. No murmur heard. Normal peripheral pulses. ABDOMEN: Soft, tender in right lower quadrant, no guarding or rebound, nondistended, normal active bowel sounds. EXTREMITIES: Normal range of motion. No edema. SKIN: Warm, dry, no rash. NEURO: No focal deficits. Alert and oriented x3. PSYCH: Normal mood and affect. Course Vital Signs Vital signs: Vital Signs Temperature 98.5 F 12/21/21 15:44 Pulse Rate 90 12/21/21 15:44 Respiratory Rate 18 12/21/21 15:44 Blood Pressure 150/101 H 12/21/21 15:44 Pulse Oximetry 100 12/21/21 15:44 Oxygen Delivery Room Air 12/21/21 15:44 Temperature 97.4 F L 12/21/21 23:40 Pulse Rate 78 12/22/21 01:37 Respiratory Rate 16 12/22/21 01:37 Blood Pressure 128/78 12/22/21 01:37 Pulse Oximetry 100 12/22/21 00:25 Oxygen Delivery Room Air 12/22/21 00:25 Oxygen Flow Rate 6 12/21/21 23:55 MDM - Abdominal Pain MDM Narrative Medical decision making narrative: Patient is a 46-year-old female presenting with right lower quadrant pain. Patient is hypertensive, otherwise vitals are within normal limits. Exam is remarkable for tenderness in her right lower quadrant. CT A/P with bilateral ovarian cysts, no other acute abnormalities. Pt continues to have severe pain despite IV narcotics. Pelvic U/S concerning for ovarian torsion. HANDS AND DIAL INSPECTOR consulted and will take pt to OR for further management. Impression: Ovarian torsion Lab Data Result diagrams: 12/21/21 16:10 12/21/21 16:10 Labs: Lab Results 12/21/21 12/21/21 12/21/21 Range/Units 16:10 16:10 20:28 WBC 7.4 (4.5-10.0) K/mm3 RBC 4.41 (4.2-5.4) M/mm3 Hgb 13.5
[2021-12-21] MEDS: ONDANSETRON INJ 4 MG/2 ML VIAL IV PUSH (18:47)
[2021-12-21] MEDS: SODIUM CHLORIDE 0.9% IV 1,000 ML 999 ML IV CONT (18:47)
[2021-12-21] MEDS: MORPHINE SULFATE (*CRX) 4 MG/ML INJ IV PUSH ×2 (18:48→20:29)
[2021-12-21 20:34] LABS: Appearance Urine Clear (Clear); Bilirubin Urine Negative (Negative); Blood Urine Trace-intact (Negative); Color Urine Yellow (Yellow); Glucose Urine UA Negative (Negative); Ketones Urine 1+ mg/dL (Negative); Leukocyte Esterase Ur Negative LEU/UL (Negative); Nitrate Urine Negative (Negative); Protein Urine Negative (Negative); Specific Grav Ur 1.015 (1.001-1.035); Urobilinogen Urine 0.2 mg/dL (<2.0)
[2021-12-21 20:38] LABS: Mucus Urine Rare /lpf; RBC Urine 0-2 /hpf (0-2); Squamous Epithelial Cell Urine Occasional /hpf (Few); WBC Urine 0-3 /hpf
[2021-12-21 20:47] LABS: Add Urine Microscopic? YES
[2021-12-21] MEDS: HYDROmorphone HCL INJ (*CRX) 1 MG/ML SYR 0.5 MG IV PUSH (22:10)
--- NOTE | 2021-12-21 22:15 | PM.IMHP ---
H&P: HPI History of Present Illness Date/Time: 12/21/21 22:15 Chief Complaint: Right lower quadrant pain Narrative: The patient a 46-year-old seen in the emergency room for worsening right lower quadrant pain over the past 48hours. CT scan showed bilateral ovarian cyst. Pelvic ultrasound showed a 2.5cm simple ovarian cyst and a 3.5cm complex suspected hemorrhagic cyst the right ovary with no Doppler flow to the right ovary suspicious for torsion. Left ovary has normal Doppler flow. Patient has received some Dilaudid at the time my exam and is stating a 10/10 pain. Was recommended to proceed to the operating room for further inspection of the ovary via laparoscopy. As discussed with the patient the plan will be to evaluate the right ovary for necrosis if torsion is present. If the ovary has good return of blood flow upon decreasing the torsion, will attempt to leave the ovary in-situ and drain the cysts. If there is any evidence of necrosis or the torsion is unable to be reduced, the plan is for a right oophorectomy. Risks of infection, bleeding, injury to internal organs, anesthesia, deep vein thrombosis, and need for exploratory laparotomy were reviewed. Patient voiced understanding and agrees to proceed. Review of Systems Constitutional: Constitutional: Reports anorexia and Reports fatigue Gastrointestinal: Gastrointestinal: Reports nausea PMFSH Past Medical History Medical History (Updated 12/21/21 @ 22:29 by Reyna Batista MD) Anxiety Depression Endometriosis Headache Migraine Thyroid disease History of thyroid cancer Surgical History Surgical History (Updated 12/21/21 @ 22:28 by Reyna Batista MD) H/O vaginal hysterectomy [facility]- 2020 History of thyroidectomy 2014 History of tubal ligation 2012 Family History Family History Father Heart disease Mother Diabetes mellitus Heart disease Social History Social History Smoking status: Never smoker Alcohol intake: current Alcohol use details: SOCIAL Substance use: never Substance use type: does not use Spiritual care concerns: No Meds Home Medications and Allergies Home Medications Medication Instructions Recorded Confirmed Type alprazolam 0.5 mg tablet 0.5 mg PO DAILY PRN Anxiety #90 05/19/21 10/21/21 Rx tabs sertraline 50 mg tablet 50 mg PO DAILY #90 tabs 06/15/22 09/08/22 Rx thyroid (pork) 120 mg tablet 120 mg PO DAILY #90 tabs 08/17/21 10/21/21 Rx ([place] Thyroid) topiramate 50 mg tablet (Topamax) 50 mg PO BID #180 tabs 08/19/21 10/21/21 Rx bupropion HCl 150 mg tablet,12 hr 150 mg PO BID #180 tabs 10/22/21 10/22/21 Rx sustained-release nitrofurantoin macrocrystal 100 mg 100 mg PO .COMPLEX #60 caps 10/26/21 Rx capsule methylphenidate HCl 18 mg 18 mg PO QAM #30 tabs 12/09/21 12/09/21 Rx tablet,extended release 24 hr ([facility]a) Allergies Allergy/AdvReac Type Severity Reaction Status Date / Time hydrocodone AdvReac Unknown Unknown Verified 12/09/21 13:56 Vital Signs Vital Signs - 24 hr 12/21/21 15:44 Temperature 98.5 F Pulse Rate 90 Respiratory Rate 18 Blood Pressure 150/101 H Pulse Oximetry 100 Oxygen Delivery Room Air Exam Const: General: uncomfortable Nutritional Appearance: average body habitus Orientation/consciousness: oriented to person, oriented to place and oriented to time Resp: Effort & Inspection: normal respiratory effort GI: Inspection: normal to inspection GI Palp: Yes abdominal tenderness ( generalized lower abdominal tenderness greater on the right) and Yes Soft to palpation Percussion: Yes normal to percussion H&P: Results Labs Labs: Short CBC 12/21/21 Range/Units 16:10 WBC 7.4 (4.5-10.0) K/mm3 Hgb 13.5 (12.0-15.0) g/dL Hct 39.4 (37.0-47.0) % Plt Count 298 (150-375) k/mm3 [facility] 12/21/21 1
--- NOTE | 2021-12-21 22:41 | WPDANESEPPF ---
Anes - Initial Pre Proc Eval Procedure: Operation Date: 12/21/21 22:45 Proposed Procedures p Laparoscopic Right Oopherectomy - Reyna Batista MD Date/Time: 12/21/21 22:41 Pre Op Diagnosis: rlq pain Patient Data Age: 46 Gender: F Height: 1.7 m Weight: 70 kg Last Vital Signs Temp 36.9 C 12/21/21 15:44 Pulse 90 12/21/21 15:44 Resp 18 12/21/21 15:44 BP 150/101 H 12/21/21 15:44 Pulse Ox 100 12/21/21 15:44 O2 Del Method Room Air 12/21/21 15:44 Allergies Allergy/AdvReac Type Severity Reaction Status Date / Time hydrocodone AdvReac Unknown Unknown Verified 12/09/21 13:56 Home Medications Medication Instructions Recorded Confirmed Type alprazolam 0.5 mg tablet 0.5 mg PO DAILY PRN Anxiety #90 05/19/21 10/21/21 Rx tabs sertraline 50 mg tablet 50 mg PO DAILY #90 tabs 07/28/21 10/21/21 Rx thyroid (pork) 120 mg tablet 120 mg PO DAILY #90 tabs 08/17/21 10/21/21 Rx ([place] Thyroid) topiramate 50 mg tablet (Topamax) 50 mg PO BID #180 tabs 08/19/21 10/21/21 Rx bupropion HCl 150 mg tablet,12 hr 150 mg PO BID #180 tabs 10/22/21 10/22/21 Rx sustained-release nitrofurantoin macrocrystal 100 mg 100 mg PO .COMPLEX #60 caps 10/26/21 Rx capsule methylphenidate HCl 18 mg 18 mg PO QAM #30 tabs 12/09/21 12/09/21 Rx tablet,extended release 24 hr (Concerta) Laboratory Tests 12/21/21 12/21/21 12/21/21 16:10 16:10 20:28 WBC 7.4 K/mm3 K/mm3 (4.5-10.0) RBC 4.41 M/mm3 M/mm3 (4.2-5.4) Hgb 13.5 g/dL g/dL (12.0-15.0) Hct 39.4 % % (37.0-47.0) MCV 89.3 fl fl (80-100) MCH 30.6 pg pg (26-34) MCHC 34.3 g/dl g/dl (32-36) RDW 11.9 % % (11.5-14.5) Plt Count 298 k/mm3 k/mm3 (150-375) MPV 9.8 fl fl (7.4-10.4) Immature Gran % (Auto) 0.3 % % (0-0.5) Neut % (Auto) 74.1 % H % (45.5-73.1) Lymph % (Auto) 16.9 % L % (18.3-44.2) [place] % (Auto) 7.1 % % (2.6-8.5) Eos % (Auto) 1.1 % % (0-4.4) Baso % (Auto) 0.5 % % (0.2-1.2) Lymph # (Auto) 1.24 K/mm3 K/mm3 (0.9-3.2) [place] # (Auto) 0.5 K/mm3 K/mm3 (0.1-0.6) Eos # (Auto) 0.1 K/mm3 K/mm3 (0-0.3) Baso # (Auto) 0.0 K/mm3 K/mm3 (0.0-0.1) Abs Immat Gran (auto) 0.02 K/mm3 K/mm3 (0.00-0.031) Absolute Neuts (auto) 5.5 K/mm3 K/mm3 (1.3-6.7) Absolute Nucleated RBC 0.0 K/mm3 K/mm3 (0.0-0.012) Nucleated RBC % 0.0 % % (0.0-0.2) Sodium 140 mmol/L mmol/L (137-145) Potassium 3.6 mmol/L mmol/L (3.4-5.0) Chloride 106 mmol/L mmol/L (98-107) Carbon Dioxide 23 mmol/L mmol/L (22-30) Anion Gap 11 mmol/L mmol/L (8-16) BUN 12 mg/dL mg/dL (7-17) Creatinine 0.80 mg/dL mg/dL (0.7-1.0) Estim Creat Clear Calc 75 ml/min ml/min Estimated GFR > 60 (59 - ) Glucose 102 mg/dL mg/dL (65-110) Calcium 8.5 mg/dL mg/dL (8.4-10.2) Total Bilirubin 0.2 mg/dL mg/dL (0.2-1.3) AST 20 U/L U/L (14-36) ALT 22 U/L U/L (6-35) Alkaline Phosphatase 88 U/L U/L (38-126) Total Protein 7.0 g/dL g/dL (6.3-8.2) Albumin 4.2 g/dL g/dL (3.5-5.1) Lipase 118 U/L U/L (23-300) Urine Color Yellow (Yellow) Urine Appearance Clear (Clear) Urine pH 7.0 (5.0-9.0) Ur Specific [place] 1.015 (1.001-1.035) Urine Protein Negative mg/dL mg/dL (Negative) Urine Glucose (UA) Negative mg/dL mg/dL (Negative) Urine Ketones 1+ mg/dL H mg/dL (Negative) Ur Blood (Man) Trace-intact (Negative) Urine Nitrate Negative (Negative) Urine Bilirubin Negative (Negative) Urine Urobilinogen 0.2 mg/dL mg/dL (<2.0) Leukocyte Es
--- NOTE | 2021-12-21 23:37 | P.OP_ITS ---
Procedure Note - Detailed Date of Procedure 12/21/21 Pre-op Diagnosis Right lower quadrant pain right ovarian cysts suspected right ovarian torsion Post-op Diagnosis Other ( right lower quadrant pain; right ovarian cysts; adhesions) Procedure Performed laparoscopic adhesiolysis with right ovarian cystotomies Surgeon Reyna Batista MD Anesthesia General Findings the appendix is very stretched and pale adherent to the lowest edge of the right ovary and mid ovary right hemorrhagic ovarian cyst and simple ovarian cyst omental adhesions to the left ovary Description of Procedure The patient was taken to the operating room and placed under anesthesia in the dorsal lithotomy position. She was prepped and draped in the usual sterile fashion. The patient had voided just prior to entering the operating room. A sponge stick is placed vaginally. The vertical skin incision was made at the base of the umbilicus. The abdomen is tented and the Veress needle placed with a normal water drop test and with an opening patient pressure of 4mmHg. The pneumoperitoneum was obtained to a patient pressure of 15mmHg. The Veress needle was removed and the 5mm Optiview trocar was placed with intra-abdominal placement being confirmed with the laparoscope. The patient is placed in Trendelenburg. A horizontal skin incision was made 2cm above the symphysis pubis in the midline. A 5mm trocar is placed under direct visualization. A 2nd 5mm trocar was placed in the right lower quadrant under direct visualization. The blunt probe was used to investigate the pelvis with the above-stated findings. The Mersilene scissors are used to cauterize the adhesions to the appendix while the instruction assistant principal applied counter traction with an atraumatic grasper. The appendix resumed a pink color after it was no longer stretched in tethered to the ovary. The right ovary is noted to be adherent to the pelvic sidewall and no torsion is evident. The hemorrhagic cyst is opened with Mersilene scissors cauterizing the incision of approximately 3cm in length. The clot is removed and suctioned with the suction device. The simple cyst was ruptured inside of ovary and drained of clear fluid with the Mersilene scissors. Bleeding vessels on the surface of the ovary are cauterized as needed until hemostasis was obtained. The left ovary is inspected and noted to have omental adhesions which were taken down using Mersilene scissors and cautery. the left ovary appears otherwise normal. The ovarian bed again irrigated and suctioned with good hemostasis noted. All instruments are removed after pneumoperitoneum was reduced. Sponge, needle, and instrument counts are correct per the OR staff. The patient is awakened from anesthesia and taken to recovery in stable condition. Estimated Blood Loss 5 Drains No Packing No Pathology None sent Complications No immediate complications Condition Stable Disposition PACU
[2021-12-21 23:40] VITALS: BP 131/71; PULSE 118; RESP 20; TEMP 36.3; O2SAT 100
[2021-12-21] MEDS: LACTATED RINGERS 1,000 ML 30 ML IV CONT (23:40)
--- NOTE | 2021-12-21 23:47 | SUR.OPER ---
PATIENT VOIDED PREOP IMMEDIATELY PRIOR TO OR/SURGEON AWARE. EBL 5ML.
[2021-12-21 23:55] VITALS: BP 116/84; PULSE 87; RESP 18; O2SAT 100
[2021-12-22] MEDS: fentaNYL CITRATE INJ (*CRX) 100 MCG/2 ML VIAL 25 MCG IV PUSH ×8 (00:05→01:10)
[2021-12-22 00:10] VITALS: BP 120/83; PULSE 91; RESP 16; O2SAT 100
[2021-12-22 00:25] VITALS: BP 124/88; PULSE 88; RESP 14; O2SAT 100
[2021-12-22] MEDS: ONDANSETRON INJ 4 MG/2 ML VIAL IV PUSH (00:35)
[2021-12-22 00:36] VITALS: BP 129/91; PULSE 77; RESP 18
[2021-12-22] MEDS: LACTATED RINGERS 1,000 ML 30 ML IV CONT (00:36)
[2021-12-22 01:07] VITALS: BP 124/89; PULSE 81; RESP 16
[2021-12-22] MEDS: oxyCODONE HCL (*CRX) 5 MG TAB IR PO (01:20)
[2021-12-22 01:37] VITALS: BP 128/78; PULSE 78; RESP 16
== END 2021-12-22 01:46 | disposition still patient (30) ==
PROVIDERS: Emergency Medicine; Obstetrics & Gynecology Gynecology; PCP Family Medicine Adolescent Medicine; Visit Provider Emergency Medicine
PROC: (CPT 49320; principal; 2021-12-21 22:45)
DX: N73.6 Female pelvic peritoneal adhesions (postinfective) (principal); N83.202 Unspecified ovarian cyst, left side; N83.201 Unspecified ovarian cyst, right side; E89.0 Postprocedural hypothyroidism; F41.9 Anxiety disorder, unspecified; F32.A Depression, unspecified; Z85.850 Personal history of malignant neoplasm of thyroid
CPT/HCPCS: 58662; 36415; 74177; 76830; 76856; 80053; 81001; 83690; 85025; 96361; 96374; 96375; 96376; 99285; A9270; J0330; J1100; J1170; J2250; J2270; J2405; J2704; J3010; J7030; J7120; Q9967

== ENCOUNTER 2022-01-17 16:04 | Outpatient (CLI) | payer OTHER, SELFPAY ==
--- NOTE | ~2022-01-17 | US_ITS ---
EXAMINATION: US pelvic complete w TV DATE: 01/17/2022 16:54 INDICATION: Right pelvic pain. Comparison:Ultrasound dated 12/21/2021 TECHNIQUE: Multiple transabdominal and endovaginal sonographic images of the pelvis performed. FINDINGS: The uterus is surgically absent. The right ovary measures 4.9 x 4.2 x 5.2 cm and the left ovary measures 2.9 x 1.3 x 1.9 cm. There is a septated cyst in the right ovary measuring 4.3 x 3.4 x 4.2 cm. There are small follicles in each ov jyoti. Normal doppler signal in both ovaries. There is no free fluid in the pelvis. There are no abnormal masses seen on either side. IMPRESSION: 1. Mildly complicated septated cyst of the right ovary measuring 4.3 cm maximum dimension. Reviewed, dictated and finalized at location A. ESS STUDIES TEACHER
== END 2022-01-17 16:05 | disposition home or self-care (01) ==
PROVIDERS: PCP Family Medicine Adolescent Medicine; Visit Provider Obstetrics & Gynecology
DX: R10.2 Pelvic and perineal pain (principal); N83.201 Unspecified ovarian cyst, right side
CPT/HCPCS: 76830; 76856

== ENCOUNTER 2022-01-27 09:15 | Outpatient (CLI) | payer OTHER, SELFPAY | END 2022-01-27 09:16 | disposition home or self-care (01) | PROVIDERS: PCP Family Medicine Adolescent Medicine; Visit Provider Obstetrics & Gynecology | DX: N83.201 Unspecified ovarian cyst, right side (principal) | CPT/HCPCS: 36415; 86850; 86900; 86901 ==

== ENCOUNTER 2022-01-28 00:19 | Day surgery (SDC) | payer OTHER, SELFPAY ==
[2022-01-24 15:45] VITALS: BMI 23.4
--- NOTE | 2022-01-24 16:04 | PC.NURSE ---
Report to the Outpatient Waiting Room, entrance under the green pavilion located off [facility], at time __12:15PM on date __01/28/22 . Planned Procedure Time: _2:15PM . Time changes happen often and if your time is changed the preop area will call you the afternoon before. - You and your visitor will be asked to self-screen and do not enter if you have any COVID symptoms. - Only one visitor is requested with a max of two and NO children visitors are allowed at this time. - The patient visitor may be requested to leave or wait in car when not with patient due to distancing restrictions. - A mask is optional within the hospital. Patients may have clear liquids (water, carbonated beverages, clear teas, apple juice) until 3 hours prior to surgery with a maximum of 20 ounces. - No food from midnight until time of surgery Take the following medications with a SIP of water the morning of surgery: __ALPRAZOLAM, BUPROPIAN, SERTRALINE, ARMOUR THYROID, TOPIRAMATE Medications to discontinue per physician NONE Please no make-up, nail belarusian, hairspray, perfume, deodorant, or body powder the day of surgery. No jewelry (including any body piercings) or valuables the day of surgery, leave them at home. Please take a shower or bath the night before, or the morning of, surgery with an antibacterial soap. Wear comfortable, loose fitting clothing. Children are encouraged to wear pajamas. - Jewelry must be removed prior to entering the operating room. Rings and piercings that are not removed may be cut off. - The hospital will not accept responsibility for valuables. - Please leave all valuables, including medications, at home the day of surgery. If you are going home after surgery, a licensed hazmat truck driver must drive you home. - NO public transportation without another adult if you receive anesthesia. - We recommend that an adult stay with you for 24 hours following discharge. - We also recommend that you do not drive, make important decision, drink alcoholic beverages, or take any drugs that were not prescribed by your health care provider for at least 24 hours after your discharge time.. Follow any additional instructions given to you from your surgeon. If you or anyone in your household have experienced Covid symptoms in the past week, please notify your surgeon or the nurse liaison at the phone number below for possible testing. Telephone instructions given to ___PATIENT and asked if any additional questions and then verbalized understanding. Patient advised to call surgeon office or pre surgery nurse liaison [phone] if any additional questions.
--- NOTE | 2022-01-25 08:02 | P.HP_ITS ---
H&P: HPI History of Present Illness Date/Time: 01/25/22 08:02 Chief Complaint: Right-sided pelvic pain and complex cyst Narrative: This is a 46-year-old status post hysterectomy who underwent cystectomy several weeks back as a walk-in through the ER via another physician. She continues to have pain and ultrasound shows a complex right ovarian cyst. She is admitted for laparoscopic right salpingo-oophorectomy PMFSH Past Medical History Medical History Anxiety Depression Endometriosis Headache Migraine Thyroid disease History of thyroid cancer Surgical History Surgical History H/O vaginal hysterectomy [facility]- 2020 History of thyroidectomy 2014 History of tubal ligation 2012 Family History Family History Father Heart disease Mother Diabetes mellitus Heart disease Social History Social History Smoking status: Never smoker Alcohol intake: current Alcohol use details: SOCIAL Substance use: never Substance use type: does not use Additional living arrangements comments: DAUGHTER AND BOYFRIEND Spiritual care concerns: No Meds Home Medications and Allergies Home Medications Medication Instructions Recorded Confirmed Type bupropion HCl 150 mg tablet,12 hr 150 mg PO BID #180 tabs 10/22/21 01/24/22 Rx sustained-release nitrofurantoin macrocrystal 100 mg 100 mg PO .COMPLEX #60 caps 10/26/21 01/24/22 Rx capsule methylphenidate HCl 18 mg 18 mg PO QAM #30 tabs 12/09/21 01/24/22 Rx tablet,extended release 24 hr (Concerta) alprazolam 0.5 mg tablet 0.5 mg PO BID PRN Anxiety 01/24/22 01/24/22 History sertraline 50 mg tablet 50 mg PO QAM 01/24/22 01/24/22 History thyroid (pork) 120 mg tablet 120 mg PO QAM 01/24/22 01/24/22 History ([place] Thyroid) topiramate 50 mg tablet (Topamax) See Rx Instructions .Route .COMPLEX 01/24/22 01/24/22 History Allergies Allergy/AdvReac Type Severity Reaction Status Date / Time hydrocodone AdvReac Unknown Vomiting, Verified 01/24/22 15:40 NAUSEA Exam Const: General: cooperative, healthy appearing and comfortable Nutritional Appearance: average body habitus Orientation/consciousness: oriented to person, oriented to place and oriented to time Resp: Effort & Inspection: normal respiratory effort Cardio: Rate: regular rate Rhythm: regular rhythm Heart sounds: S1 normal heart sound present and S2 normal heart sound present GI: Inspection: normal to inspection : Speculum Exam - Vagina: normal appearance of the vagina Speculum Exam - Cervix: Cervix absent Bimanual exam- vagina & uterus: uterus absent Bimanual Exam- Adnexa, other: Adnexal mass present on the right Assessment and Plan Assessment and plan (1) Right ovarian cyst: Code(s): N83.201 - Unspecified ovarian cyst, right side Status: Acute Plan Laparoscopic right salpingo-oophorectomy
[2022-01-28] VITALS (10 sets, daily range): BP systolic 98–118; BP diastolic 60–93; PULSE 70–97; RESP 10–16; TEMP 36.3–36.6; O2SAT 93–100; BMI 23.6
--- NOTE | 2022-01-28 06:17 | WPDHPUPDATE1 ---
History and Physical Update Update Date/Time: 01/28/22 06:17 History and Physical has been reviewed, including an updated exam of the patient. There are NO changes in the patient's condition. Risks, benefits, and alternatives have been discussed and questions answered. Patient agrees to proceed with procedure.
[2022-01-28] MEDS: LACTATED RINGERS 1,000 ML 30 ML IV CONT ×2 (13:00→15:25)
[2022-01-28] MEDS: KETOROLAC 15 MG/ML VIAL (*BKC) IV PUSH (13:10)
[2022-01-28] MEDS: ACETAMINOPHEN 500 MG TABLET 1000 MG PO (13:10)
--- NOTE | 2022-01-28 13:14 | WPDANESEPPF ---
Anes - Initial Pre Proc Eval Procedure: Operation Date: 01/28/22 14:15 Proposed Procedures p Laparoscopic Right Salpingo Oophorectomy - Chandan Gimenez MD Date/Time: 01/28/22 13:14 Surgeon: Chandan Gimenez MD Pre Op Diagnosis: right side pain and right ovarian cyst Patient Data Age: 46 Gender: F Height: 1.7 m Weight: 68.4 kg Allergies Allergy/AdvReac Type Severity Reaction Status Date / Time hydrocodone AdvReac Unknown Vomiting, Verified 01/28/22 12:31 NAUSEA Home Medications Medication Instructions Recorded Confirmed Type bupropion HCl 150 mg tablet,12 hr 150 mg PO BID #180 tabs 10/22/21 01/28/22 Rx sustained-release nitrofurantoin macrocrystal 100 mg 100 mg PO .COMPLEX #60 caps 10/26/21 01/24/22 Rx capsule methylphenidate HCl 18 mg 18 mg PO QAM #30 tabs 12/09/21 01/24/22 Rx tablet,extended release 24 hr (Concerta) alprazolam 0.5 mg tablet 0.5 mg PO BID PRN Anxiety 01/24/22 01/28/22 History sertraline 50 mg tablet 50 mg PO QAM 01/24/22 01/28/22 History thyroid (pork) 120 mg tablet 120 mg PO QAM 01/24/22 01/28/22 History ([place] Thyroid) topiramate 50 mg tablet (Topamax) See Rx Instructions .Route .COMPLEX 01/24/22 01/28/22 History hydrocodone 5 mg-acetaminophen 325 1 tablet PO Q4H PRN pain #20 tabs 01/28/22 Rx mg tablet ondansetron 4 mg disintegrating 4 mg PO Q6H PRN nausea and 01/28/22 Rx tablet vomiting #14 tabs Patient hx anesthesia problems: none Family hx anesthesia problems: none Results Review: All pre-operative results and documents have been reviewed as part of the pre-operative evaluation. [facility] Past Medical History Medical History Anxiety Depression Endometriosis Headache Migraine Thyroid disease History of thyroid cancer Surgical History Surgical History H/O vaginal hysterectomy [facility] 2020 History of thyroidectomy 2014 History of tubal ligation 2013 Family History Family History Father Heart disease Mother Diabetes mellitus Heart disease Social History Social History Smoking status: Never smoker Alcohol intake: current Alcohol use details: SOCIAL Substance use: never Substance use type: does not use Living arrangements: with family Additional living arrangements comments: DAUGHTER AND BOYFRIEND Spiritual care concerns: No Anes - Eval Final PreProcedure Day of Procedure 01/28/22 13:14 Patient weight: normal Heart: regular rate and rhythm Lungs: clear to auscultation Airway: Mallampati scale class II Neurological: alert and oriented Last oral intake: >/= 8 hours ASA classification: III Emergent: no Anesthetic plan: proceed Anesthesia type and monitoring: general ETT and standard monitoring Results Review: All pre-operative results and documents have been reviewed as part of the pre-operative evaluation. Informed Consent: The patient's anesthetic plan and its attendant risks and benefits were discussed with the patient/family/POA. Questions were solicited and answers provided to the satisfaction of the patient/family/POA.
--- NOTE | 2022-01-28 14:44 | W.PM.PROC2 ---
Procedure Note - Detailed Date of Procedure 01/28/22 Pre-op Diagnosis right side pain and right ovarian cyst Post-op Diagnosis Other (Pelvic adhesions) Procedure Performed the with procedure is laparoscopic right oophorectomy and extensive lysis of adhesions Surgeon Chandan Gimenez MD Anesthesia General Indications a 46-year-old female status post hysterectomy you underwent cystectomy few months ago with severe pelvic pain complex right ovarian cyst Findings uterus and tubes were previously removed. Normal-appearing left ovary was seen. Complex right ovarian cyst with multiple adhesions including the appendix stuck to ovarian complex. Description of Procedure Patient was prepped draped in the normal sterile fashion placed in dorsal lithotomy position. Under excellent general trach anesthesia weighted speculum placed post burned vagina. Sponge stick was placed in the bladder draining clear urine. The weighted speculum was removed and the gloves were changed. Infraumbilical incision made the Veress needle passed in the abdomen. Abdomen filled with CO2 gas [id number]. The 5mm trocar advanced under direct visualization with the Optiview no injury seen. Patient placed in Trendelenburg and a suprapubic incision made. The 5mm trocar advanced under direct visualization assuring no injury. Multiple adhesions were seen and a right lower quadrant incision made the 10mm trocar advanced under direct visualization assuring no injury. His complex right ovarian mass. The appendix was markedly adherent to the ovarian complex and this was sharply dissected away easily and irrigated. Multiple adhesions were seen from the bowel and omentum to the vaginal cuff line from her previous hysterectomy. Using the LigaSure these adhesions were sharply dissected and can occasionally using power. Once this had been clear irrigation was undertaken no clear the ovary was stuck to the ovarian fossa and using tugged and sharp dissection this was gently dissected away from the ovarian fossa to the pedicle could be clearly visualized. This was then serially clamped burned and cut with the LigaSure. The ovarian complex was then placed in Endo-Catch and removed through the right lower quadrant. Irrigation was undertaken until clear and hemostasis was assured. Photo documentation was undertaken before and after. The lower site removed the gas removed from the abdomen. The upper sites removed the incisions closed with 4 Monocryl glue. Instruments removed from the vagina the patient awakened. She went to recovery in satisfactory condition. All sponge, needle, instrument counts were correct. There were no immediate complications noted Estimated Blood Loss 25 Drains No Packing No Pathology Yes Complications No immediate complications Condition Stable Disposition PACU
[2022-01-28] MEDS: fentaNYL CITRATE INJ (*CRX) 100 MCG/2 ML VIAL 25 MCG IV PUSH ×4 (15:20→15:33)
[2022-01-28] MEDS: ONDANSETRON INJ 4 MG/2 ML VIAL IV PUSH (16:09)
[2022-01-28] MEDS: oxyCODONE HCL (*CRX) 5 MG TAB IR PO (16:09)
== END 2022-01-28 17:00 | disposition home or self-care (01) ==
PROVIDERS: PCP Family Medicine Adolescent Medicine; Visit Provider Obstetrics & Gynecology
PROC: (CPT 49320; principal; 2022-01-28 14:15)
DX: N83.11 Corpus luteum cyst of right ovary (principal); R10.2 Pelvic and perineal pain; N73.6 Female pelvic peritoneal adhesions (postinfective); Z85.850 Personal history of malignant neoplasm of thyroid
CPT/HCPCS: 58661; 88305; A9270; J1100; J1170; J1885; J2250; J2405; J2704; J3010; J7120

== ENCOUNTER 2022-03-31 09:49 | Outpatient (CLI) | payer OTHER, SELFPAY ==
--- NOTE | ~2022-03-31 | MM_ITS ---
EXAMINATION: MM screening saad BI w iban HISTORY: Screening mammogram TECHNIQUE: Craniocaudal and mediolateral oblique 3-D tomosynthesis images were obtained and synthetic 2-D images were generated. CAD analysis was submitted and interpreted. COMPARISON: No prior mammogram is available for comparison at this institution. BREAST PARENCHYMAL COMPOSITION: The breasts are extremely dense, which lowers the sensitivity of mamm ography. FINDINGS: There is no evidence of suspicious mass, calcification, or architectural distortion to sugg est malignancy in either breast. There has been no suspicious interval change. IMPRESSION: 1. No mammographic evidence of malignancy. 2. Recommend routine screening mammography in one year. BI-RADS Category 1: Negative Reviewed, dictated and finalized at location A. EXAMINER
== END 2022-03-31 09:50 | disposition home or self-care (01) ==
PROVIDERS: PCP Family Medicine Adolescent Medicine; Visit Provider Obstetrics & Gynecology
DX: Z12.31 Encounter for screening mammogram for malignant neoplasm of breast (principal)
CPT/HCPCS: 77063; 77067

== ENCOUNTER → 2022-05-19 08:23 | Outpatient (CLI) | payer OTHER, SELFPAY ==
--- NOTE | ~2022-05-19 | MR_ITS ---
EXAMINATION: MR hip RT wo con DATE: 05/19/2022 09:08 INDICATION: Right hip pain. TECHNIQUE: Magnetic resonance imaging (MRI) of the right hip was performed without intravenous contra st. COMPARISON: Right hip radiographs 03/18/2022 FINDINGS: Bones/cartilage: Bone alignment is normal. No fracture. The femoral head/neck morphologies are normal. Small field-of- view images of right hip demonstrate normal cartilage. Labrum: The right acetabular labrum is normal. Fluid: There is no hip joint effusion. There is mild right trochanteric bursitis. There is a physiologic vol ume of fluid in left trochanteric bursa. Soft tissues: There is a 3.4 cm cyst in the left ovary, likely a follicular cyst. There is severe right gluteus min imus tendinopathy and mild right gluteus medius tendinopathy. The left gluteal tendons are normal. IMPRESSION: 1. Normal right hip joint. 2. Severe right gluteus minimus tendinopathy and mild right gluteus medius tendinopathy. 3. Mild right trochanteric bursitis. Reviewed, dictated and finalized at location A. IMPRESSION: 1. Normal right hip joint. 2. Severe right gluteus minimus tendinopathy and mild right gluteus medius tend inopathy. 3. Mild right trochanteric bursitis.
== END ==
PROVIDERS: PCP Family Medicine Adolescent Medicine; Visit Provider Orthopaedic Surgery
DX: M25.551 Pain in right hip (principal); M76.01 Gluteal tendinitis, right hip; M70.851 Other soft tissue disorders related to use, overuse and pressure, right thigh
CPT/HCPCS: 73721

== ENCOUNTER 2022-08-02 00:33 | Day surgery (SDC) | payer OTHER, SELFPAY ==
[2022-07-28 12:25] VITALS: BMI 24.1
--- NOTE | 2022-07-28 12:31 | PC.NURSE ---
Report to the Outpatient Waiting Room, entrance under the green pavilion located off [facility], at time _1130_ on date 08/02/22_. Planned Procedure Time: _1330_. Time changes happen often and if your time is changed the preop area will call you the afternoon before. - You and your visitor will be asked to self-screen and do not enter if you have any COVID symptoms. - A mask is optional within the hospital at this time. Patients may have clear liquids (water, carbonated beverages, clear teas, apple juice) until 3 hours prior to surgery with a maximum of 20 ounces. - No food from midnight until time of surgery - Infants may have breast milk until 4 hours before surgery, formula 6 hours prior to surgery. - Children will be allowed to drink immediately following surgery. If applicable, please bring a bottle or sippy cup to assist with drinking. Juice, water, soda, and popsicles are readily available. For infants on formula, please bring formula the day of surgery. Pacifiers are allowed. Take the following medications with a SIP of water the morning of surgery: ____ALPRAZOLAM IF NEEDED, THYROID__ DO NOT STOP ANY OF YOUR OTHER PRESCRIPTION MEDICATIONS PRIOR TO SURGERY ?EXCEPT THE FOLLOWING Medications to discontinue per physician NONE Date to take last dose Please no make-up, nail kazakh, hairspray, perfume, deodorant, or body powder the day of surgery. No jewelry (including any body piercings) or valuables the day of surgery, leave them at home. Please take a shower or bath the night before, or the morning of, surgery with an antibacterial soap. Wear comfortable, loose fitting clothing. Children are encouraged to wear pajamas. - Jewelry must be removed prior to entering the operating room. Rings and piercings that are not removed may be cut off. - The hospital will not accept responsibility for valuables. - Please leave all valuables, including medications, at home the day of surgery. If you are going home after surgery, a licensed regional flatbed truck driver must drive you home. - NO public transportation without another adult if you receive anesthesia. - We recommend that an adult stay with you for 24 hours following discharge. - We also recommend that you do not drive, make important decision, drink alcoholic beverages, or take any drugs that were not prescribed by your health care provider for at least 24 hours after your discharge time. For Pediatric surgeries, we recommend two adults accompany the child home. Follow any additional instructions given to you from your surgeon. If you or anyone in your household have experienced Covid symptoms in the past week, please notify your surgeon or the nurse liaison at the phone number below for possible testing. Telephone instructions given to PATIENT_and asked if any additional questions and then verbalized understanding. Patient advised to call surgeon office or pre surgery nurse liaison [phone] if any additional questions.
[2022-08-02] VITALS (9 sets, daily range): BP systolic 115–134; BP diastolic 71–93; PULSE 76–110; RESP 13–21; TEMP 36.2–37.1; O2SAT 99–100
--- NOTE | 2022-08-02 07:18 | WPDHPUPDATE1 ---
History and Physical Update Update Date/Time: 08/02/22 07:18 History and Physical has been reviewed, including an updated exam of the patient. There are NO changes in the patient's condition. Risks, benefits, and alternatives have been discussed and questions answered. Patient agrees to proceed with procedure.
[2022-08-02] MEDS: LACTATED RINGERS 1,000 ML 30 ML IV CONT ×3 (12:00→16:47)
[2022-08-02] MEDS: KETOROLAC 15 MG/ML VIAL (*BKC) IV PUSH (12:41)
[2022-08-02] MEDS: ACETAMINOPHEN 500 MG TABLET 1000 MG PO (12:41)
--- NOTE | 2022-08-02 13:26 | WPDANESEPPF ---
Anes - Initial Pre Proc Eval Procedure: Operation Date: 08/02/22 13:30 Proposed Procedures p Right Hip Arthroscopic Iliotibial Band Release and Bursectomy - Joseph eKys MD Date/Time: 08/02/22 13:26 Surgeon: Joseph Keys MD Pre Op Diagnosis: Right Hip Trochanteric Bursitis Patient Data Age: 46 Gender: F Height: 1.7 m Weight: 69.9 kg Last Vital Signs Temp 37.1 C 08/02/22 12:37 Pulse 92 08/02/22 12:37 Resp 16 08/02/22 12:37 BP 117/89 08/02/22 12:37 Pulse Ox 99 08/02/22 12:37 O2 Del Method Room Air 08/02/22 12:37 Allergies Allergy/AdvReac Type Severity Reaction Status Date / Time hydrocodone AdvReac Unknown Vomiting, Verified 08/02/22 12:34 NAUSEA concerta AdvReac Intermediate Nausea Uncoded 08/02/22 12:34 Home Medications Medication Instructions Recorded Confirmed Type thyroid (pork) 120 mg tablet 120 mg PO QAM #90 tabs 02/23/22 07/29/22 Rx ([place] Thyroid) bupropion HCl 150 mg tablet,12 hr 150 mg PO BID #180 tabs 06/27/22 07/29/22 Rx sustained-release alprazolam 0.5 mg tablet 0.5 mg PO BID PRN Anxiety #90 tabs 07/28/22 07/28/22 Rx dextroamphetamine-amphetamine ER 15 mg PO DAILY #30 caps 07/28/22 Rx 15 mg 24hr capsule,extend release (Adderall XR) nitrofurantoin macrocrystal 100 mg 100 mg PO .COMPLEX PRN HEADACHES 07/28/22 07/28/22 History capsule sertraline 50 mg tablet 50 mg PO DAILY 07/28/22 07/28/22 History topiramate 50 mg tablet 50 mg PO BID 07/28/22 07/28/22 History Patient hx anesthesia problems: none Family hx anesthesia problems: none Results Review: All pre-operative results and documents have been reviewed as part of the pre-operative evaluation. [facility] Past Medical History Medical History Anxiety Depression Endometriosis Headache Migraine Thyroid disease History of thyroid cancer Surgical History Surgical History H/O vaginal hysterectomy [facility]- 2020 History of thyroidectomy 2014 History of tubal ligation 2012 Family History Family History Father Heart disease Mother Diabetes mellitus Heart disease Social History Social History Smoking status: Never smoker Alcohol intake: current Alcohol use details: 1 PER MONTH Substance use: never Substance use type: does not use Lack of Transportation: No Lack of Food: Never True Current Housing: I Have Housing Concerned About Future Housing: No Difficulty Paying Gas/Electric Bills: No Difficulty Paying for Meds: No Currently Unemployed: No Education: High School Diploma/GED Difficulty w/ Childcare or Family Care: No Living arrangements: with family Additional living arrangements comments: DAUGHTER AND BOYFRIEND Spiritual care concerns: No Anes - Eval Final PreProcedure Day of Procedure 08/02/22 13:26 Patient weight: normal Heart: regular rate and rhythm Lungs: clear to auscultation and normal air movement Airway: Mallampati scale class II Neurological: alert and oriented Last oral intake: >/= 8 hours ASA classification: II Emergent: no Anesthetic plan: proceed Anesthesia type and monitoring: general ETT and standard monitoring Results Review: All pre-operative results and documents have been reviewed as part of the pre-operative evaluation. Informed Consent: The patient's anesthetic plan and its attendant risks and benefits were discussed with the patient/family/POA. Questions were solicited and answers provided to the satisfaction of the patient/family/POA.
[2022-08-02] MEDS: ceFAZolin 2 GM/D5W 50 ML 2 GM/50 ML BAG IVPB (14:01)
[2022-08-02] MEDS: fentaNYL CITRATE INJ (*CRX) 100 MCG/2 ML VIAL 25 MCG IV PUSH ×3 (15:38→16:00)
--- NOTE | 2022-08-02 15:40 | W.PM.PROC2 ---
Procedure Note - Detailed Date of Procedure 08/02/22 Pre-op Diagnosis Right Hip Trochanteric Bursitis Post-op Diagnosis Same Procedure Performed ?Right?hip arthroscopic iliotibial band release and bursectomy. Surgeon Joseph Keys MD Anesthesia General Indications The patient complained of severe persistent hip pain. Recalcitrant despite several cortisone injections, and physical therapy. Findings The abductor musculature appeared healthy without any evidence for tearing. No significant bony spurs were encountered Description of Procedure The patient was identified and the surgical site confirmed and signed in the preoperative holding area. Antibiotics were started per protocol. She was brought to the operative room and transferred to the OR table. A general anesthetic was administered. Lateral position with hip positioners. The hip was prepped and draped in the usual sterile fashion. A time-out was performed. The portal sites were marked and infiltrated with 0.5% Marcaine 20 mL. Two portals were established. The first portal was proximal to the greater trochanter, and 2nd just distal to the vastus lateralis insertion. Inflow was obtained with the saline pump. The camera was introduced. The camera was introduced superior to the deep fascia. A spinal needle was used to confirm the high point of the greater trochanter. The arthroscopic shaver was used to clear the subcutaneous tissues off of the surgical site. The radiofrequency probe was used to release the iliotibial band longitudinal. The lower extremity was abducted allowing for inspection of the trochanteric bursa. The thickened tissue was resected with the arthroscopic shaver. Special care was taken to avoid inadvertent posterior debridement, to protect the sciatic nerve. The arthroscopic instruments were removed. The tourniquet released and wounds closed with subcutaneous 3-0 Monocryl absorbable suture. Steri strips and a sterile dressing were applied. A light elastic wrap was placed. The patient was extubated and brought to the recovery room in stable condition. Estimated Blood Loss -3.0 Complications No immediate complications Condition Stable Disposition PACU [facility] Billing Surgery - Charge Forward: Surgery Billing
[2022-08-02] MEDS: ONDANSETRON INJ 4 MG/2 ML VIAL IV PUSH (15:49)
[2022-08-02] MEDS: SCOPOLAMINE 1.5 MG PATCH TRANSDERM (16:44)
[2022-08-02] MEDS: diphenhydrAMINE HCl INJ 50 MG/ML VIAL 25 MG IV PUSH (16:45)
[2022-08-02] MEDS: oxyCODONE HCL (*CRX) 5 MG TAB IR PO (17:07)
== END 2022-08-02 17:50 | disposition home or self-care (01) ==
PROVIDERS: PCP Family Medicine Adolescent Medicine; Visit Provider Orthopaedic Surgery
PROC: (CPT 29860; principal; 2022-08-02 13:30)
DX: M70.61 Trochanteric bursitis, right hip (principal); E89.0 Postprocedural hypothyroidism; F41.9 Anxiety disorder, unspecified; F32.A Depression, unspecified
CPT/HCPCS: 27299; 27062; A9270; J0330; J0690; J1100; J1200; J1885; J2250; J2405; J2704; J3010; J7120

== ENCOUNTER 2023-04-24 00:45 | Day surgery (SDC) | payer OTHER, SELFPAY ==
--- NOTE | 2023-03-15 12:53 | PC.NURSE ---
17 attempts have been made to contact pt. regarding procedure scheduled on 03/21/2023, with multiple messages left with other numbers listed. Dr. Salmeron office called and notified of this. They will call patient and leave message that we need her to call us to do interview or to cancel. We will make no further attempts to call pt and she does risk being charged a no show fee if she does not show up and does not cancel prior.
[2023-03-16 11:04] VITALS: BMI 19.3
[2023-04-11 15:15] VITALS: BMI 19.3
--- NOTE | 2023-04-21 09:55 | SUR.PREOP ---
Patient called regarding upcoming procedure. Voicemail left regarding appointment times.
[2023-04-24 11:24] VITALS: BP 111/88; PULSE 103; RESP 16; TEMP 36.4; O2SAT 100
--- NOTE | 2023-04-24 11:35 | PM.HPGS ---
History of Present Illness History of Present Illness Consent: Risks, benefits, and alternatives have been discussed and questions answered. Patient agrees to proceed with procedure. Chief complaint: neoplasm screening Narrative: Justin Ann is a 47 year old female here for first colonoscopy Review of Systems Constitutional: Constitutional: Denies headache(s) and Denies weakness Eyes: Eyes: Denies blurry vision ENT: Reports Normal hearing present, Denies headache(s) and Denies neck pain Cardiovascular: Cardiovascular: Denies chest pain and Denies dyspnea Respiratory: Respiratory: Denies dyspnea Gastrointestinal: Gastrointestinal: Reports no additional gastrointestinal complaints Genitourinary: Genitourinary: Denies dysuria Musculoskeletal: Musculoskeletal: Denies neck pain Integumentary/Breasts: Skin/Breast: Denies dry skin Neurologic: Reports Normal hearing present, Denies headache(s) and Denies weakness Psychiatric: Psychiatric: Denies anxiety Endocrine: Endocrine: Denies change in body appearance Hematologic/Lymphatic: Hematologic/Lymphatic: Denies easy bleeding Allergic/Immunologic: Allergic/Immunologic: Denies urticaria PMF Past Medical History Medical History Anxiety Depression Endometriosis Headache Migraine Thyroid disease History of thyroid cancer Surgical History Surgical History H/O vaginal hysterectomy [facility] 2020 History of arthroscopy of hip (~08/02/22) IT Band release and bursectomy Right hip History of thyroidectomy 2014 History of tubal ligation 2013 Family History Family History Father Heart disease Mother Diabetes mellitus Heart disease Social History Social History Smoking status: Never smoker Alcohol intake: current Alcohol use details: 1 PER MONTH Substance use: never Substance use type: does not use Lack of Transportation: No Lack of Food: Never True Current Housing: I Have Housing Concerned About Future Housing: No Difficulty Paying Gas/Electric Bills: No Difficulty Paying for Meds: No Currently Unemployed: No Education: High School Diploma/GED Difficulty w/ Childcare or Family Care: No Living arrangements: with family Additional living arrangements comments: DAUGHTER AND BOYFRIEND Spiritual care concerns: No Meds Home Medications and Allergies Home Medications Medication Instructions Recorded Confirmed Type nitrofurantoin macrocrystal 100 mg 100 mg PO .COMPLEX PRN PROPHYLACTIC 07/28/22 03/16/23 History capsule thyroid (pork) 120 mg tablet 120 mg PO QAM #90 tabs 12/05/22 04/24/23 Rx ([place] [facility]) doxycycline hyclate 100 mg capsule 100 mg PO DAILY #90 caps 02/15/23 03/16/23 Rx alprazolam 0.5 mg tablet 0.5 mg PO BID PRN Anxiety #90 tabs 02/22/23 03/16/23 Rx bupropion HCl 150 mg tablet,12 hr 150 mg PO BID #180 tabs 03/13/23 03/16/23 Rx sustained-release topiramate 50 mg tablet 50 mg PO HS 03/16/23 03/16/23 History topiramate 50 mg tablet 100 mg PO QAM 03/16/23 03/16/23 History dextroamphetamine-amphetamine ER 20 mg PO QAM #30 caps 04/05/23 Rx 20 mg 24hr capsule,extend release (Adderall XR) sertraline 100 mg tablet 100 mg PO DAILY #90 tabs 04/05/23 Rx Allergies Allergy/AdvReac Type Severity Reaction Status Date / Time methylphenidate AdvReac Intermediate Nausea Verified 04/24/23 11:26 [From Concerta] hydrocodone AdvReac Unknown Vomiting, Verified 04/24/23 11:22 NAUSEA Vital Signs Vital Signs - 24 hr 04/24/23 11:24 Temperature 97.6 F Pulse Rate 103 H Respiratory Rate 16 Blood Pressure 111/88 Pulse Oximetry 100 Oxygen Delivery Room Air Exam Const: General: comfortable and no acute distress HENMT: Face/Nose/Sinus: Normal nares pre
[2023-04-24] MEDS: LACTATED RINGERS 1,000 ML 150 ML IV CONT (11:37)
[2023-04-24 11:55] VITALS: BP 111/74; PULSE 93; RESP 18; O2SAT 99
[2023-04-24 12:05] VITALS: BP 111/77; PULSE 93; RESP 20; O2SAT 100
[2023-04-24 12:15] VITALS: BP 118/85; PULSE 83; RESP 20; O2SAT 100
--- NOTE | 2023-04-26 09:07 | WPDANESEPPF ---
Anes - Initial Pre Proc Eval Procedure: Operation Date: 04/24/23 13:00 Proposed Procedures p Screening Colonoscopy - Christian Land MD Date/Time: 04/26/23 09:07 Surgeon: Christian Land MD Pre Op Diagnosis: neoplasm screening Patient Data Age: 47 Gender: F Height: 1.7 m Weight: 54.3 kg Last Vital Signs Temp 97.6 F 04/24/23 11:24 Pulse 83 04/24/23 12:15 Resp 20 04/24/23 12:15 BP 118/85 04/24/23 12:15 Pulse Ox 100 04/24/23 12:15 O2 Del Method Room Air 04/24/23 12:15 Allergies Allergy/AdvReac Type Severity Reaction Status Date / Time methylphenidate AdvReac Intermediate Nausea Verified 04/24/23 11:26 [From Concerta] hydrocodone AdvReac Unknown Vomiting, Verified 04/24/23 11:22 NAUSEA Home Medications Medication Instructions Recorded Confirmed Type nitrofurantoin macrocrystal 100 mg 100 mg PO .COMPLEX PRN PROPHYLACTIC 07/28/22 03/16/23 History capsule thyroid (pork) 120 mg tablet 120 mg PO QAM #90 tabs 12/05/22 04/24/23 Rx ([place] [facility]) doxycycline hyclate 100 mg capsule 100 mg PO DAILY #90 caps 02/15/23 03/16/23 Rx alprazolam 0.5 mg tablet 0.5 mg PO BID PRN Anxiety #90 tabs 02/22/23 03/16/23 Rx bupropion HCl 150 mg tablet,12 hr 150 mg PO BID #180 tabs 03/13/23 03/16/23 Rx sustained-release topiramate 50 mg tablet 50 mg PO HS 03/16/23 03/16/23 History topiramate 50 mg tablet 100 mg PO QAM 03/16/23 03/16/23 History dextroamphetamine-amphetamine ER 20 mg PO QAM #30 caps 04/05/23 Rx 20 mg 24hr capsule,extend release (Adderall XR) sertraline 100 mg tablet 100 mg PO DAILY #90 tabs 04/05/23 Rx Patient hx anesthesia problems: none Family hx anesthesia problems: none Results Review: All pre-operative results and documents have been reviewed as part of the pre-operative evaluation. PMFSH Past Medical History Medical History Anxiety Depression Endometriosis Headache Migraine Thyroid disease History of thyroid cancer Surgical History Surgical History H/O vaginal hysterectomy [facility]- 2020 History of arthroscopy of hip (~08/02/22) IT Band release and bursectomy Right hip History of thyroidectomy 2014 History of tubal ligation 2012 Family History Family History Father Heart disease Mother Diabetes mellitus Heart disease Social History Social History Smoking status: Never smoker Alcohol intake: current Alcohol use details: 1 PER MONTH Substance use: never Substance use type: does not use Lack of Transportation: No Lack of Food: Never True Current Housing: I Have Housing Concerned About Future Housing: No Difficulty Paying Gas/Electric Bills: No Difficulty Paying for Meds: No Currently Unemployed: No Education: High School Diploma/GED Difficulty w/ Childcare or Family Care: No Living arrangements: with family Additional living arrangements comments: DAUGHTER AND BOYFRIEND Spiritual care concerns: No Anes - Eval Final PreProcedure Day of Procedure 04/26/23 09:07 Patient weight: thin Heart: regular rate and rhythm Lungs: clear to auscultation Airway: Mallampati scale class II Neurological: alert and oriented Last oral intake: >/= 8 hours ASA classification: III Emergent: no Anesthetic plan: proceed Anesthesia type and monitoring: general GIVS and standard monitoring Results Review: All pre-operative results and documents have been reviewed as part of the pre-operative evaluation. Informed Consent: The patient's anesthetic plan and its attendant risks and benefits were discussed with the patient/family/POA. Questions were solicited and answers provided to the satisfaction of the patient/family/POA.
== END 2023-04-24 12:29 | disposition home or self-care (01) ==
PROVIDERS: PCP Nurse Practitioner Family; Visit Provider Internal Medicine Gastroenterology
PROC: 0DJD8ZZ Inspection of Lower Intestinal Tract, Via Natural or Artificial Opening Endoscopic (ICD-10-PCS; CPT 45378; principal; 2023-04-24 13:00)
DX: Z12.31 Encounter for screening mammogram for malignant neoplasm of breast (principal); K64.8 Other hemorrhoids; K57.30 Diverticulosis of large intestine without perforation or abscess without bleeding; F41.9 Anxiety disorder, unspecified; F32.A Depression, unspecified; N80.9 Endometriosis, unspecified; E07.9 Disorder of thyroid, unspecified; Z98.890 Other specified postprocedural states; Z85.850 Personal history of malignant neoplasm of thyroid; Z82.49 Family history of ischemic heart disease and other diseases of the circulatory system
CPT/HCPCS: 45378; J2704; J7120

== ENCOUNTER 2023-08-08 19:58 | Emergency (ER) | payer OTHER, SELFPAY ==
[2023-08-08 20:00] VITALS: BP 125/89; PULSE 94; RESP 16; TEMP 36.4; O2SAT 100
--- NOTE | 2023-08-08 20:09 | ED.URI ---
HPI - URI/Sore Throat General Chief Complaint: Upper Respiratory Infection Stated Complaint: sore throat ,ear pain Time Seen by Provider: 08/08/23 20:05 Source: patient Mode of arrival: ambulatory Limitations: no limitations History of Present Illness HPI Narrative: Justin is a 47-year-old female patient presenting to the clinic today with complaints of sore throat and bilateral ear pain for the past 3-4 days. She reports she has had some chills and body aches but no known fever. Denies any known sick contacts. Denies any chest pain or shortness of breath but does have some dizziness. MD elicited complaint: sore throat and nasal congestion Related Data Home Medications Medication Instructions Recorded Confirmed nitrofurantoin macrocrystal 100 mg 100 mg PO .COMPLEX PRN PROPHYLACTIC 07/28/22 08/08/23 capsule topiramate 50 mg tablet 50 mg PO HS 03/16/23 08/08/23 Allergies Allergy/AdvReac Type Severity Reaction Status Date / Time methylphenidate AdvReac Intermediate Nausea Verified 04/24/23 11:26 [From Concerta] hydrocodone AdvReac Unknown Vomiting, Verified 04/24/23 11:22 NAUSEA Review of Systems Review of Systems: Pertinent positives per HPI. Patient denies any fever, chills, rash, headache, visual changes, dizziness, shortness of breath, chest pain, palpitations, nausea, vomiting, diarrhea, constipation, abdominal pain, or any urinary issues. [facility] Past Medical History Medical History Anxiety Depression Endometriosis Headache Migraine Thyroid disease History of thyroid cancer Surgical History Surgical History H/O vaginal hysterectomy [facility] 2020 History of arthroscopy of hip (~08/02/22) IT Band release and bursectomy Right hip History of thyroidectomy 2014 History of tubal ligation 2012 Family History Family History Father Heart disease Mother Diabetes mellitus Heart disease Social History Social History Smoking status: Never smoker Alcohol intake: current Alcohol use details: 1 PER MONTH Substance use: never Substance use type: does not use Lack of Transportation: No Lack of Food: Never True Current Housing: I Have Housing Concerned About Future Housing: No Difficulty Paying Gas/Electric Bills: No Difficulty Paying for Meds: No Currently Unemployed: No Education: High School Diploma/GED Difficulty w/ Childcare or Family Care: No Living arrangements: with family Additional living arrangements comments: DAUGHTER AND BOYFRIEND Spiritual care concerns: No Comments At the time of my signature, I reviewed and agree with the nursing past medical, surgical, social, and family history. There is no relevant family history pertinent to the patient complaint. Exam Narrative: General: Well-developed, well nourished, in no apparent distress Head: Normocephalic, atraumatic Eyes: Pupils equally round and reactive to light bilaterally, EOM intact, sclera and conjunctive clear, no discharge, lids normal Ears: Unable to visualize the tympanic membrane, ear canals ceruminous with hard wax, no drainage, grossly hearing normal. Nose: Nares patent, clear nasal discharge, no inflammation, no sinus tenderness. Mouth: Oral pharynx without lesions or masses, good dentition, MMM. Neck: Supple, trachea midline, no enlargement of anterior or posterior cervical nodes, no thyroid masses or goiter palpable. Cardio: Regular rate and rhythm, s1 and s2 normal, no murmur appreciated. Resp: Clear to auscultation bilaterally, no rhonchi, rales, wheezing or rubs Course Course Emergency Course: Portions of this record may have been created with voice recognition software. Level of Care: Express Care Visit Vital Signs Vi
== END 2023-08-08 20:25 | disposition home or self-care (01) ==
PROVIDERS: Emergency Provider Nurse Practitioner Family; PCP Nurse Practitioner Family
DX: J02.9 Acute pharyngitis, unspecified (principal); H61.23 Impacted cerumen, bilateral; J06.9 Acute upper respiratory infection, unspecified; N80.9 Endometriosis, unspecified
CPT/HCPCS: 87081; 87880; 99213; G0463